=== PATIENT | female | born 1980 | race African-American/Black ===

== ENCOUNTER 2016-09-09 17:34 | Emergency (ER) | payer SELFPAY ==
[2016-09-09] MEDS ORDERED: ONDANSETRON HCL INJ/PF 4 MG/2 ML SDV IV ONE (18:47)
--- NOTE | 2016-09-09 18:49 | ER Document Report ---
ED Medical Screen (RME) - General Chief Complaint: Abdominal Cramping Stated Complaint: ABDOMINAL PAIN,VAGINAL BLEEDING Time Seen by Provider: 09/09/16 18:47 Mode of Arrival: Ambulatory Information source: Patient Notes: Patient presents with lower pelvic pain that radiates to left lower quadrant that started yesterday. Patient states she started to have vaginal bleeding yesterday. Patient's last menstrual period was 2 weeks ago. Patient does take an oral contraceptive pill. Patient complains of some dizziness. Patient denies any fever. Patient does report nausea and vomiting 8 episodes today. Denies any urinary symptoms. hx: none TRAVEL OUTSIDE OF THE [place] IN LAST 30 DAYS: No - Related Data Allergies/Adverse Reactions: No Known Allergies Allergy (Verified 09/09/16 17:43) Past Medical History Renal/ Medical History: Denies: Hx Peritoneal Dialysis - Immunizations Immunizations up to date: Yes Hx Diphtheria, Pertussis, Tetanus Vaccination: Yes Physical Exam - Vital signs Vitals: Temp Pulse Resp BP Pulse Ox 98.0 F 55 L 16 124/84 98 09/09/16 17:43 09/09/16 17:43 09/09/16 17:43 09/09/16 17:43 09/09/16 17:43 - Abdominal Tenderness: Tender - Suprapubic, left lower quadrant Course - Vital Signs Vital signs: Temp Pulse Resp BP Pulse Ox 98.0 F 55 L 16 124/84 98 09/09/16 17:43 09/09/16 17:43 09/09/16 17:43 09/09/16 17:43 09/09/16 17:43
[2016-09-09 19:40] LABS: ABSOLUTE EOSINOPHILS # (AUTO) 0.1 10^3/uL (0.0-0.6); ABSOLUTE LYMPHOCYTES (AUTO) 1.3 10^3/uL (0.5-4.7); ABSOLUTE MONOCYTES (AUTO) 0.6 10^3/uL (0.1-1.4); ABSOLUTE NEUT (AUTO) 2.9 10^3/uL (1.7-8.2); BASOPHILS % (AUTO) 0.6 % (0-2); EOSINOPHILS % (AUTO) 2.7 % (0-6); HEMATOCRIT 38.4 % (36.0-47.0); HEMOGLOBIN 12.9 g/dL (12.0-15.5); HGB HCT DIFFERENCE 0.3; LYMPHOCYTES % (AUTO) 26.9 % (13-45); MEAN CORPUSCULAR HEMOGLOBIN 31.6 pg (27.0-33.4); MEAN CORPUSCULAR HGB CONC 33.7 g/dL (32.0-36.0); MEAN CORPUSCULAR VOLUME 94 fl (80-97); MONOCYTES % (AUTO) 11.1 % (3-13); RED CELL DISTRIBUTION WIDTH 13.7 % (11.5-14.0); SEGMENTED NEUTROPHILS % (AUTO) 58.7 % (42-78)
[2016-09-09] MEDS ORDERED: KETOROLAC TROMETHAMINE INJ/PF 30 MG/1 ML SDV IV ONE (19:53)
[2016-09-09] MEDS ORDERED: MORPHINE SULFATE 10 MG/ML INJ IV ONE (19:53)
[2016-09-09 19:54] LABS: ALANINE AMINOTRANSFERASE 30 U/L (9-52); ALBUMIN 4.5 g/dL (3.5-5.0); ALKALINE PHOSPHATASE 43 U/L (38-126); ANION GAP 11 (5-19); ASPARTATE AMINO TRANSFERASE 24 U/L (14-36); BILIRUBIN,DIRECT 0.2 mg/dL (0.0-0.4); BILIRUBIN,TOTAL 1.2 mg/dL (0.2-1.3); BLOOD UREA NITROGEN 17 mg/dL (7-20); CALCIUM 9.6 mg/dL (8.4-10.2); CARBON DIOXIDE 24 mmol/L (22-30); CHLORIDE 106 mmol/L (98-107); CREATININE RESULT 0.94 mg/dL (0.52-1.25); GLUCOSE 103 mg/dL (75-110); POTASSIUM 4.1 mmol/L (3.6-5.0); SODIUM 140.8 mmol/L (137-145); TOTAL PROTEIN 7.4 g/dL (6.3-8.2)
--- NOTE | 2016-09-09 19:54 | ER Document Report ---
ED GI/ - General Chief Complaint: Abdominal Cramping Stated Complaint: ABDOMINAL PAIN,VAGINAL BLEEDING Time Seen by Provider: 09/09/16 18:47 Mode of Arrival: Ambulatory Notes: Patient is a 35-year-old female who comes emergency department for chief complaint of pain in her left lower abdomen/pelvic area along with vaginal bleeding. Bleeding started yesterday but pain became significantly worse today , she states after the pain began she vomited, she states she has vomited 8 times now. She denies abnormal bowel movements, hematemesis or hematochezia. She denies fever, flank pain, dysuria, vaginal discharge. Her last menstrual cycle was only 2 weeks ago. She denies history of the same, denies history of cysts or kidney stones. She denies any surgeries or past medical history. She takes daily oral contraceptive. TRAVEL OUTSIDE OF THE [place] IN LAST 30 DAYS: No - Related Data Allergies/Adverse Reactions: No Known Allergies Allergy (Verified 09/09/16 17:43) Past Medical History - General Information source: Patient - Social History Smoking Status: Current Every Day Smoker Chew tobacco use (# tins/day): No Frequency of alcohol use: None Drug Abuse: None Family History: None Renal/ Medical History: Denies: Hx Peritoneal Dialysis - Immunizations Immunizations up to date: Yes Hx Diphtheria, Pertussis, Tetanus Vaccination: Yes Review of Systems - Review of Systems Constitutional: No symptoms reported EENT: No symptoms reported Cardiovascular: No symptoms reported Respiratory: No symptoms reported Gastrointestinal: See HPI Genitourinary: See HPI Female Genitourinary: See HPI Musculoskeletal: No symptoms reported Skin: No symptoms reported Hematologic/Lymphatic: No symptoms reported Neurological/Psychological: No symptoms reported Physical Exam - Vital signs Vitals: Temp Pulse Resp BP Pulse Ox 98.0 F 55 L 16 124/84 98 09/09/16 17:43 09/09/16 17:43 09/09/16 17:43 09/09/16 17:43 09/09/16 17:43 Interpretation: Normal - General General appearance: Appears well, Alert - HEENT Head: Normocephalic, Atraumatic Eyes: Normal Pupils: PERRL - Respiratory Respiratory status: No respiratory distress Chest status: Nontender Breath sounds: Normal Chest palpation: Normal - Cardiovascular Rhythm: Regular Heart sounds: Normal auscultation Murmur: No - Abdominal Inspection: Normal Distension: No distension Bowel sounds: Normal Tenderness: Tender - Tenderness in the left lower quadrant to the left pelvic area, nontender abdomen otherwise. No guarding or rigidity. Organomegaly: No organomegaly - Back Back: Normal, Nontender. No: Tender, CVA tenderness - Extremities General upper extremity: Normal inspection, Nontender, Normal color, Normal ROM , Normal temperature General lower extremity: Normal inspection, Nontender, Normal color, Normal ROM , Normal temperature, Normal weight bearing. No: Olga Lidia's sign - Neurological Neuro grossly intact: Yes Cognition: Normal Orientation: AAOx4 Janay Coma Scale Eye Opening: Spontaneous [place] Coma Scale Verbal: Oriented [place] Coma Scale Motor: Obeys Commands [place] Coma Scale Total: 15 Speech: Normal Motor strength normal: LUE, RUE, LLE, RLE Sensory: Normal - Psychological Associated symptoms: Normal affect, Normal mood - Skin Skin Temperature: Warm Skin Moisture: Dry Skin Color: Normal Course - Re-evaluation Re-evalutation: Patient initially is in pain, she does have tenderness in the left lower quadrant and pelvic area. CBC, chemistry, urinalysis nonspecific. Patient refuses a pelvic examination. I did explain that this could be a pelvic infection and I cannot rule this out without one, she states that she does not have any symptoms of this and she does not want one. Ultrasound was performed and shows a cyst on both right and left ovaries with no evidence of torsion or other obvious abnormality. I did discuss the ultrasound with Dr. Adler. Patient asymptomatic on re-evaluation. Well appearing. Discussed workup with patient in detail, patient will be provided with medication for her symptoms, discussed ovarian cysts and return precautions, patient states satisfaction and agreement. - Vital Signs Vital signs: Temp Pulse Resp BP Pulse Ox 98.1 F 62 17 138/82 H 100 09/09/16 22:20 09/09/16 22:20 09/09/16 22:20 09/09/16 22:20 09/09/16 22:20 - Laboratory Result Diagrams: 09/09/16 19:20 09/09/16 19:20 Laboratory results interpreted by me: 09/09/16 20:20 Urine Protein 30 H Urine Ketones 80 H Urine Urobilinogen 2.0 H Discharge - Discharge Clinical Impression: Pelvic pain Vomiting Qualifiers: Vomiting type: unspecified Vomiting Intractability: non-intractable Nausea presence: with nausea Qualified Code(s): R11.2 - Nausea with vomiting, unspecified Condition: Stable Disposition: HOME, SELF-CARE Additional Instructions: Ultrasound shows ovarian cysts, this is most likely the cause of your pain, test is negative, remaining workup is unremarkable other than showing dehydration. Rehydrate, take the pain medication and nausea medication if needed, take ibuprofen additionally, follow-up with the [facility] [employer] referral. Return to emergency department for any worsening symptoms including return or severe pain, fever, uncontrolled vomiting, or any other concerning symptoms. Ovarian Cyst Your examination shows the presence of an ovarian cyst. This is a ball of fluid attached to the ovary. Ovarian cysts in women of child-bearing age are usually innocent. However, the cyst may cause pain when it grows or bursts. An innocent ovarian cyst will usually go away by itself. When the cyst becomes painful, you should rest. Pain medication may be required. Some women find a hot water bottle soothing. The pain usually resolves within one or two days. After menopause, an ovarian cyst may mean a tumor, and requires more aggressive evaluation -- usually surgery is recommended to remove or biopsy the cyst. A very large cyst requires evaluation at any age. Most cysts (even the innocent ones) require follow-up examination. Call the doctor or return at any time if the pain increases significantly, if you become faint, or if you experience vaginal bleeding. Prescriptions: Hydrocodone/Acetaminophen [Stopover 5-325 mg Tablet] 1 - 2 tab PO ASDIR #12 tablet Promethazine HCl [Phenergan 25 mg Tablet] 1 - 2 tab PO Q6H PRN #15 tablet PRN Reason: Forms: Return to Work
[2016-09-09 20:36] LABS: APPEARANCE,URINE CLOUDY; BILIRUBIN,URINE NEGATIVE (NEGATIVE); GLUCOSE, URINE NEGATIVE (NEGATIVE); KETONES,URINE 80 mg/dL (NEGATIVE); LEUKOCYTE ESTERASE,URINE NEGATIVE (NEGATIVE); NITRITE,URINE NEGATIVE (NEGATIVE); PROTEIN,URINE 30 mg/dL (NEGATIVE); URINE SPECIFIC GRAVITY 1.035
[2016-09-09] MEDS ORDERED: NORMAL SALINE 1000 ML 1,000 ML IV ONE (21:08)
--- NOTE | 2016-09-09 21:51 | RADIOLOGY REPORT (SQ) ---
EXAM DESCRIPTION: U/S NON OB PEL TV W/DOPPLER COMPLETED DATE/TIME: 09/09/2016 9:38 pm REASON FOR STUDY: LLQ pain COMPARISON: None. TECHNIQUE: Dynamic and static grayscale images acquired of the pelvis via transvaginal approach and recorded on PACS. Additional selected color Doppler and spectral images recorded. LIMITATIONS: None. FINDINGS: UTERUS: Contour normal. No mass. ENDOMETRIAL STRIPE: No focal or generalized thickening. No masses. CERVIX: No nabothian cysts. RIGHT OVARY: There is simple cyst in the right ovary measuring 4.1 x 3.1 x 3.1 cm. Small amount of f ree fluid seen adjacent to the right adnexum. RIGHT OVARY DOPPLER: Normal arterial vascular flow without evidence for torsion. LEFT OVARY: Paraovarian hypoechoic lesion/cyst measuring 1.8 by 1.2 x 1.1 cm. The ovary is of unremar kable appearance. LEFT OVARY DOPPLER: Normal arterial vascular flow without evidence for torsion. FREE FLUID: None noted. OTHER: No other significant finding. MEASUREMENTS: UTERUS: 10.1 x 5.5 x 5.1 cm ENDOMETRIAL STRIPE: 6 mm RIGHT OVARY: 4.9 x 3.8 x 3.6 cm LEFT OVARY: 3.5 x 2.8 x 2.0 cm IMPRESSION: 1. 4.1 cm Right ovarian cyst, simple. Small amount of free fluid seen adjacent to the ovary. No evidence of torsion. 2. Paraovarian cyst measuring 1.8 x 1.2 x 1.1 cm on the left. Left ovary is normal in appearance. No evidence of torsion. 3. Otherwise unremarkable pelvic ultrasound could COMMENT: Followup of asymptomatic benign ovarian cysts detected by ultrasound in POSTMENOPAUSAL pat ients Simple cyst *? 1 cm: no followup *>1 and ? 7 cm: yearly followup ultrasound *>7 cm: MRI or surgical consultation Hemorrhagic cyst *Early postmenopausal (50-55 yo) any size: followup US to ensure resolution *Late postmenopausal (>55 yo): consider surgical evaluation Endometrioma *Initial US 6-12 week followup, then yearly if not surgically removed Dermoid *Yearly followup US if not surgically removed Note: If cyst is clinically symptomatic or otherwise concerning, other followup may be warranted. Menopause is considered age 50 by radiologist unless age of last period is known. Based on recommenda tions of the Society for Radiologists in Ultrasound Consensus Conference Statement 2010 on management of asymptomatic ovarian and other adnexal cysts imaged at ultrasound. TECHNICAL DOCUMENTATION: JOB ID: [id number] [employer]- All Rights Reserved
[2016-09-09] MEDS ORDERED: HYDROCODONE/ACETAMINOPHEN 5-325 MG 6 TAB/DSPK PO PRN (22:05)
[2016-09-09 22:27] VITALS: BP 138/82
== END 2016-09-09 22:20 | disposition home or self-care (01) ==
LOC: ER 17:34
DX: R10.2 Pelvic and perineal pain (principal); R11.2 Nausea with vomiting, unspecified; N93.9 Abnormal uterine and vaginal bleeding, unspecified; R10.32 Left lower quadrant pain; F17.200 Nicotine dependence, unspecified, uncomplicated
CPT/HCPCS: 99284; 96361; 51701; 96374; 96375; 36415; 84703; 85025; 80053; 81001; 76830; 93976; J1885; J2270; J2405; J7030

== ENCOUNTER 2018-01-08 17:53 | Emergency (ER) | payer SELFPAY ==
[2018-01-08] MEDS ORDERED: NORMAL SALINE 1000 ML 1,000 ML IV ONE ×2 (18:48→19:52)
[2018-01-08] MEDS ORDERED: KETOROLAC TROMETHAMINE INJ/PF 30 MG/1 ML SDV IV ONE (18:49)
[2018-01-08] MEDS ORDERED: ONDANSETRON HCL INJ/PF 4 MG/2 ML SDV IV ONE ×2 (18:49→21:08)
--- NOTE | 2018-01-08 18:51 | ER Document Report ---
ED Medical Screen (RME) - General Chief Complaint: Pelvic Pain Stated Complaint: PELVIC PAIN Time Seen by Provider: 01/08/18 18:45 Notes: Patient is a 37-year-old female with history of ovarian cysts that presents to the emergency department for chief complaint of pelvic cramping. Patient reports that her pain started yesterday, when she started her menstrual period became much worse today to the point where she could not tolerate so she came to the ED. Patient reports she does not believe she is as she is currently on her menstrual cycle, and has not had sexual intercourse in over 8 months. ROS: Other than noted above, the 12 point review of systems was reviewed with the patient and were negative, all pertinent findings are included in the HPI. PHYSICAL EXAMINATION: Vital signs reviewed. GENERAL: Patient appears uncomfortable, dry heaving HEAD: Atraumatic, normocephalic. EYES: Pupils equal round extraocular movements intact, conjunctiva are normal. ENT: Nares patent NECK: Normal range of motion CV: Heart regular rate and rhythm LUNGS: No respiratory distress Musculoskeletal: Normal range of motion NEUROLOGICAL: Normal speech PSYCH: Appears uncomfortable, answers questions appropriately MDM: Patient seen and examined for rapid initial assessment. Vital signs reviewed. A comprehensive ED assessment and evaluation of the patient, analysis of test results and completion of the medical decision making process will be conducted by additional ED providers. *Note is created using voice recognition software and may contain spelling, syntax or grammatical errors. TRAVEL OUTSIDE OF THE [place] IN LAST 30 DAYS: No - Related Data Allergies/Adverse Reactions: No Known Allergies Allergy (Verified 10/16/17 17:12) Past Medical History Renal/ Medical History: Denies: Hx Peritoneal Dialysis Past Surgical History: Reports: Hx Oral Surgery - wisodm teeth, Hx Orthopedic Surgery - knee surgery - Immunizations Immunizations up to date: Yes Hx Diphtheria, Pertussis, Tetanus Vaccination: Yes Physical Exam - Vital signs Vitals: Temp Pulse BP Pulse Ox 97.6 F 65 142/68 H 98 01/08/18 18:42 01/08/18 18:42 01/08/18 18:42 01/08/18 18:42 Course - Vital Signs Vital signs: Temp Pulse Resp BP Pulse Ox 97.6 F 65 142/68 H 98 01/08/18 18:42 01/08/18 18:42 01/08/18 18:42 01/08/18 18:42
[2018-01-08 19:46] LABS: APPEARANCE,URINE SLIGHTLY-CLOUDY; BILIRUBIN,URINE NEGATIVE (NEGATIVE); COLOR,URINE YELLOW; GLUCOSE, URINE NEGATIVE (NEGATIVE); KETONES,URINE 80 mg/dL (NEGATIVE); LEUKOCYTE ESTERASE,URINE SMALL (NEGATIVE); NITRITE,URINE NEGATIVE (NEGATIVE); PROTEIN,URINE >=500 mg/dL (NEGATIVE); URINE SPECIFIC GRAVITY 1.031
--- NOTE | 2018-01-08 19:55 | ER Document Report ---
ED GI/ - General Chief Complaint: Pelvic Pain Stated Complaint: PELVIC PAIN Time Seen by Provider: 01/08/18 18:45 Mode of Arrival: Ambulatory Information source: Patient Notes: Patient presents complaining of pelvic cramping that started yesterday with onset of her menses. Patient states the pain is been constant. Patient reports nausea and vomiting due to the pain symptoms. Patient states she has had problems with dysmenorrhea but only occasionally will have to come get treatment for it because it causes her to have persistent nausea and vomiting due to the pain symptoms. Patient states that she had taken herself off of control in hopes of helping to improve her pain symptoms. Patient denies any concern about STDs at this time. Patient denies any fever. TRAVEL OUTSIDE OF THE [place] IN LAST 30 DAYS: No - HPI Patient complains to provider of: Pelvic pain, Vaginal bleeding Onset: Yesterday Timing/Duration: Persistent Quality of pain: Cramping Pain Level: 5 Location: Pelvis Vaginal bleeding (Compared to normal period): Similar Sexual history: Active Associated symptoms: Nausea, Vomiting. denies: Blood in emesis, Dizzy, Fever, Urinary hesitancy, Urinary frequency, Urinary retention, Vaginal discharge Exacerbated by: Denies Relieved by: Denies Similar symptoms previously: Yes Recently seen / treated by doctor: No - Related Data Allergies/Adverse Reactions: No Known Allergies Allergy (Verified 10/16/17 17:12) Past Medical History - General Information source: Patient - Social History Smoking Status: Former Smoker Frequency of alcohol use: Occasional Drug Abuse: None Occupation: marketing services manager Family History: Reviewed & Not Pertinent Patient has suicidal ideation: No Patient has homicidal ideation: No Renal/ Medical History: Reports: Hx Ovarian Cysts. Denies: Hx Peritoneal Dialysis Past Surgical History: Reports: Hx Oral Surgery - wisodm teeth, Hx Orthopedic Surgery - knee surgery - Immunizations Immunizations up to date: Yes Hx Diphtheria, Pertussis, Tetanus Vaccination: Yes Review of Systems - Review of Systems Constitutional: No symptoms reported. denies: Fever EENT: No symptoms reported Cardiovascular: No symptoms reported. denies: Chest pain Respiratory: No symptoms reported. denies: Cough, Short of breath Gastrointestinal: Abdominal pain, Nausea, Vomiting. denies: Constipation, Poor appetite Genitourinary: No symptoms reported. denies: Dysuria, Flank pain Female Genitourinary: Vaginal bleeding. denies: Vaginal discharge Musculoskeletal: No symptoms reported. denies: Back pain Skin: No symptoms reported Hematologic/Lymphatic: No symptoms reported Neurological/Psychological: No symptoms reported Physical Exam - Vital signs Vitals: Temp Pulse BP Pulse Ox 97.6 F 65 142/68 H 98 01/08/18 18:42 01/08/18 18:42 01/08/18 18:42 01/08/18 18:42 - General General appearance: Appears well, Alert In distress: None - HEENT Head: Normocephalic, Atraumatic Eyes: Normal Nasal: Normal Mouth/Lips: Normal Mucous membranes: Dry Neck: Normal, Supple. No: Lymphadenopathy - Respiratory Respiratory status: No respiratory distress Chest status: Nontender Breath sounds: Normal. No: Rales, Rhonchi, Stridor, Wheezing Chest palpation: Normal - Cardiovascular Rhythm: Regular Heart sounds: S1 appreciated, S2 appreciated Murmur: No - Abdominal Inspection: Normal Distension: No distension Bowel sounds: Normal Tenderness: Tender - lower pelvic - Extremities General upper extremity: Normal inspection, Normal ROM General lower extremity: Normal inspection, Normal ROM - Neurological Neuro grossly intact: Yes Cognition: Normal Janay Coma Scale Eye Opening: Spontaneous [place] Coma Scale Verbal: Oriented [place] Coma Scale Motor: Obeys Commands [place] Coma Scale Total: 15 - Psychological Associated symptoms: Normal affect, Normal mood - Skin Skin Temperature: Warm Skin Moisture: Dry Skin Color: Normal Course - Re-evaluation Re-evalutation: 01/08/18 21:11 Patient complains of continued pelvic pain with nausea and vomiting. Review of patient's previous ER visits demonstrates that patient has come in previously with pelvic pain associated with her menstrual cycle with nausea and vomiting. Patient does state that this is pain typical of when she has had problems with her menstrual cycle and her ovarian cyst. 01/08/18 22:39 Patient reports that pain is resolved as well as nausea. Patient states that this typically happens that whenever her pain gets out of control it triggers the vomiting which she can get resolved until the pain is manageable. Patient' s abdomen soft, no guarding at this time. Ultrasound reviewed, no concern for torsion or TOA. Patient feels that she can manage her symptoms at home at this time. - Vital Signs Vital signs: Temp Pulse Resp BP Pulse Ox 98.0 F 57 L 16 104/67 100 01/08/18 22:54 01/08/18 22:54 01/08/18 22:54 01/08/18 22:54 01/08/18 22:54 - Laboratory Result Diagrams: 01/08/18 20:56 01/08/18 20:56 Laboratory results interpreted by me: 01/08/18 01/08/18 01/08/18 19:20 20:49 20:56 Seg Neutrophils % 84.4 H Lymphocytes % 10.3 L Chloride Carbon Dioxide Glucose Urine Protein >=500 H 30 H Urine Ketones 80 H 20 H Urine Blood LARGE H Urine Urobilinogen 2.0 H Ur Leukocyte Esterase SMALL H 01/08/18 20:56 Seg Neutrophils % Lymphocytes % Chloride 110 H Carbon Dioxide 21 L Glucose 126 H Urine Protein Urine Ketones Urine Blood Urine Urobilinogen Ur Leukocyte Esterase 01/08/18 22:39 Labs- Entire Visit 01/08/18 01/08/18 01/08/18 19:20 20:49 20:56 WBC 5.8 RBC 4.05 Hgb 12.7 Hct 37.2 MCV 92 MCH 31.5 MCHC 34.2 RDW 13.9 Plt Count 200 Seg Neutrophils % 84.4 H Lymphocytes % 10.3 L Monocytes % 4.8 Eosinophils % 0.1 Basophils % 0.4 Absolute Neutrophils 4.9 Absolute Lymphocytes 0.6 Absolute Monocytes 0.3 Absolute Eosinophils 0.0 Absolute Basophils 0.0 Sodium Potassium Chloride Carbon Dioxide Anion Gap BUN Creatinine Est GFR ( Amer) Est GFR (Non-Af Amer) Glucose Calcium Total Bilirubin Direct Bilirubin Neonat Total Bilirubin Neonat Direct Bilirubin Neonat Indirect Bili AST ALT Alkaline Phosphatase Total Protein Albumin Lipase Urine Color YELLOW STRAW Urine Appearance SLIGHTLY-CLOUDY CLEAR Urine pH 6.0 7.0 Ur Specific [place] 1.031 1.014 Urine Protein >=500 H 30 H Urine Glucose (UA) NEGATIVE NEGATIVE Urine Ketones 80 H 20 H Urine Blood LARGE H NEGATIVE Urine Nitrite NEGATIVE NEGATIVE Urine Bilirubin NEGATIVE NEGATIVE Urine Urobilinogen 2.0 H NEGATIVE Ur Leukocyte Esterase SMALL H NEGATIVE Urine WBC (Auto) 21 1 Urine RBC (Auto) >182 2 Squamous Epi Cells Auto 4 <1 Urine Mucus (Auto) MANY RARE Urine Ascorbic Acid NEGATIVE NEGATIVE Urine HCG, Qual NEGATIVE 01/08/18 20:56 WBC RBC Hgb Hct MCV MCH MCHC RDW Plt Count Seg Neutrophils % Lymphocytes % Monocytes % Eosinophils % Basophils % Absolute Neutrophils Absolute Lymphocytes Absolute Monocytes Absolute Eosinophils Absolute Basophils Sodium 142.9 Potassium 3.8 Chloride 110 H Carbon Dioxide 21 L Anion Gap 12 BUN 13 Creatinine 0.77 Est GFR ( Amer) > 60 Est GFR (Non-Af Amer) > 60 Glucose 126 H Calcium 9.0 Total Bilirubin 1.0 Direct Bilirubin 0.1 Neonat Total Bilirubin Not Reportable Neonat Direct Bilirubin Not Reportable Neonat Indirect Bili Not Reportable AST 27 ALT 29 Alkaline Phosphatase 44 Total Protein 6.9 Albumin 4.1 Lipase 35.1 Urine Color Urine Appearance Urine pH Ur Specific [place] Urine Protein Urine Glucose (UA) Urine Ketones Urine Blood Urine Nitrite Urine Bilirubin Urine Urobilinogen Ur Leukocyte Esterase Urine WBC (Auto) Urine RBC (Auto) Squamous Epi Cells Auto Urine Mucus (Auto) Urine Ascorbic Acid Urine HCG, Qual - Diagnostic Test Radiology reviewed: Reports reviewed Discharge - Discharge Clinical Impression: Dysmenorrhea Ovarian cyst Qualifiers: Laterality: unspecified laterality Qualified Code(s): N83.209 - Unspecified ovarian cyst, unspecified side Nausea and vomiting Qualifiers: Vomiting type: unspecified Vomiting Intractability: non-intractable Qualified Code(s): R11.2 - Nausea with vomiting, unspecified Condition: Stable Disposition: HOME, SELF-CARE Instructions: Anti-Inflammatory Medication ([facility]), Intravenous (IV) Fluids ([facility]) , [facility]-[employer] Doctors, Pelvic Pain ([facility]), Vomiting ([facility]) Additional Instructions: Return immediately for any new or worsening symptoms Followup with your primary care provider, call tomorrow to make a followup appointment Follow-up with a personal secretary for further evaluation, call tomorrow for an appointment Prescriptions: Naproxen [Naprosyn 250 Nmg Tablet] 1 tab PO BID #14 tablet Ondansetron HCl [Zofran 4 mg Tablet] 1 - 2 tab PO Q6 PRN #15 tablet PRN Reason: Forms: Return to Work Referrals: [facility] [Provider Group] - Follow up in 3-5 days
--- NOTE | 2018-01-08 20:44 | RADIOLOGY REPORT (SQ) ---
EXAM DESCRIPTION: U/S NON OB PEL TV W/DOPPLER COMPLETED DATE/TIME: 01/08/2018 8:33 pm REASON FOR STUDY: pelvic pain, hx ovarian cysts COMPARISON: 10/16/2017 and earlier TECHNIQUE: Dynamic and static grayscale images acquired of the pelvis via transvaginal approach and recorded on PACS. Additional selected color Doppler and spectral images recorded. LIMITATIONS: None. FINDINGS: UTERUS: Contour normal. No mass. ENDOMETRIAL STRIPE: No focal or generalized thickening. No masses. CERVIX: Few nabothian cysts. RIGHT OVARY AND DOPPLER: Normal size. No worrisome masses. Normal arterial vascular flow without evid ence for torsion. LEFT OVARY AND DOPPLER: Normal size. Unchanged paraovarian cyst measuring 2.2 cm. No worrisome mass es. Normal arterial vascular flow without evidence for torsion. FREE FLUID: None noted. OTHER: No other significant finding. MEASUREMENTS: UTERUS: 10.0 x 5.0 x 4.7 cm ENDOMETRIAL STRIPE: 4 mm RIGHT OVARY: 3.1 x 1.8 x 1.9 cm LEFT OVARY: 3.0 x 1.8 x 1.6 cm IMPRESSION: 1. No evidence of ovarian torsion. 2. Unchanged left paraovarian cyst. TECHNICAL DOCUMENTATION: JOB ID: [id number] [employer]- All Rights Reserved Rev-06/24 Reading location - IP/workstation name: [email or web address]
[2018-01-08 21:07] LABS: ABSOLUTE LYMPHOCYTES (AUTO) 0.6 10^3/uL (0.5-4.7); ABSOLUTE MONOCYTES (AUTO) 0.3 10^3/uL (0.1-1.4); ABSOLUTE NEUT (AUTO) 4.9 10^3/uL (1.7-8.2); BASOPHILS % (AUTO) 0.4 % (0-2); EOSINOPHILS % (AUTO) 0.1 % (0-6); HEMATOCRIT 37.2 % (36.0-47.0); HEMOGLOBIN 12.7 g/dL (12.0-15.5); LYMPHOCYTES % (AUTO) 10.3 % (13-45); MEAN CORPUSCULAR HEMOGLOBIN 31.5 pg (27.0-33.4); MEAN CORPUSCULAR HGB CONC 34.2 g/dL (32.0-36.0); MEAN CORPUSCULAR VOLUME 92 fl (80-97); MONOCYTES % (AUTO) 4.8 % (3-13); PLATELET COUNT 200 10^3/uL (150-450); RED BLOOD COUNT 4.05 10^6/uL (3.72-5.28); RED CELL DISTRIBUTION WIDTH 13.9 % (11.5-14.0); SEGMENTED NEUTROPHILS % (AUTO) 84.4 % (42-78); TOTAL CELLS COUNTED % (AUTO) 100 %; WHITE BLOOD COUNT 5.8 10^3/uL (4.0-10.5)
[2018-01-08] MEDS ORDERED: HYDROMORPHONE HCL INJ/PF 2 MG/ML AMPULE IV ONE (21:08)
[2018-01-08 21:11] LABS: APPEARANCE,URINE CLEAR; BILIRUBIN,URINE NEGATIVE (NEGATIVE); COLOR,URINE STRAW; GLUCOSE, URINE NEGATIVE (NEGATIVE); KETONES,URINE 20 mg/dL (NEGATIVE); LEUKOCYTE ESTERASE,URINE NEGATIVE (NEGATIVE); NITRITE,URINE NEGATIVE (NEGATIVE); PROTEIN,URINE 30 mg/dL (NEGATIVE); URINE SPECIFIC GRAVITY 1.014; UROBILINOGEN,URINE NEGATIVE mg/dL (<2.0)
[2018-01-08 21:19] LABS: BLOOD UREA NITROGEN 13 mg/dL (7-20); GLUCOSE 126 mg/dL (75-110)
[2018-01-08 21:20] LABS: ALANINE AMINOTRANSFERASE 29 U/L (9-52); ALBUMIN 4.1 g/dL (3.5-5.0); ALKALINE PHOSPHATASE 44 U/L (38-126); ANION GAP 12 (5-19); ASPARTATE AMINO TRANSFERASE 27 U/L (14-36); BILIRUBIN,DIRECT 0.1 mg/dL (0.0-0.4); CARBON DIOXIDE 21 mmol/L (22-30); CHLORIDE 110 mmol/L (98-107); LIPASE 35.1 U/L (23-300); POTASSIUM 3.8 mmol/L (3.6-5.0); SODIUM 142.9 mmol/L (137-145); TOTAL PROTEIN 6.9 g/dL (6.3-8.2)
[2018-01-08 22:56] VITALS: BP 104/67
== END 2018-01-08 22:56 | disposition home or self-care (01) ==
LOC: ER 17:53
DX: N94.6 Dysmenorrhea, unspecified (principal); N83.202 Unspecified ovarian cyst, left side; R10.2 Pelvic and perineal pain; R11.2 Nausea with vomiting, unspecified; R10.9 Unspecified abdominal pain; Z87.891 Personal history of nicotine dependence
CPT/HCPCS: 96376; 99284; 96361; 96374; 96375; 36415; 83690; 85025; 81025; 80053; 81001; 76830; 93976; J1885; J1170; J2405; J7030

== ENCOUNTER → 2018-01-14 | Outpatient (CLI) | payer SELFPAY ==
[2018-01-14 13:42] LABS: BACTERIA (WET MOUNT) 3+ BACTERIA SEEN; EPITHELIALS (WET MOUNT) 3+ EPITHELIALS SEEN; RBCS (WET MOUNT) FEW RBCS SEEN; T.VAGINALIS (WET MOUNT) TRICHOMONAS SEEN; WBCS (WET MOUNT) FEW WBCS SEEN; YEAST (WET MOUNT) NO YEAST SEEN
== END ==
LOC: LAB 13:30
PROVIDERS: ATTEND Nurse Practitioner Family
DX: N89.8 Other specified noninflammatory disorders of vagina (principal)
CPT/HCPCS: 87210

== ENCOUNTER 2018-02-07 21:21 | Emergency (ER) | payer SELFPAY ==
[2018-02-07] MEDS ORDERED: KETOROLAC TROMETHAMINE INJ/PF 30 MG/1 ML SDV IV ONE (22:14)
[2018-02-07] MEDS ORDERED: PROMETHAZINE HCL INJ 25 MG/1 ML VIAL IM ONE (22:15)
[2018-02-07] MEDS ORDERED: NORMAL SALINE 1000 ML 1,000 ML IV ONE (22:16)
--- NOTE | 2018-02-07 22:56 | ER Document Report ---
ED General - General Chief Complaint: Syncope Stated Complaint: NAUSEA,VOMITING,VERY WEAK Time Seen by Provider: 02/07/18 21:57 Notes: Patient is a 37-year-old female with a history of severe menstrual cramping. She says when she gets these cramps she starts to vomit she feels unwell and sometimes passes out. Today she passed out in the emergency room lobby. She says that this is been a chronic problem for a long time but seems to be a l ittle bit worse in the last couple months. She was on control. She states she recent moved to the area. She says she took herself off both control in July because her symptoms were even worse when she was on control. She denies any fevers. No blood in her emesis. No diarrhea. No other complaints at this time. TRAVEL OUTSIDE OF THE [place] IN LAST 30 DAYS: No - Related Data Allergies/Adverse Reactions: No Known Allergies Allergy (Verified 10/16/17 17:12) Past Medical History - Social History Smoking Status: Former Smoker Chew tobacco use (# tins/day): No Frequency of alcohol use: None Drug Abuse: None Family History: Reviewed & Not Pertinent Patient has suicidal ideation: No Patient has homicidal ideation: No Renal/ Medical History: Reports: Hx Ovarian Cysts. Denies: Hx Peritoneal Dialysis Past Surgical History: Reports: Hx Oral Surgery - wisodm teeth, Hx Orthopedic Surgery - knee surgery - Immunizations Immunizations up to date: Yes Hx Diphtheria, Pertussis, Tetanus Vaccination: Yes Review of Systems - Review of Systems Notes: My Normal Review Basic REVIEW OF SYSTEMS: CONSTITUTIONAL : Denies fever, chills, or sweats. Denies recent illness. CARDIOVASCULAR: Denies chest pain. RESPIRATORY: Denies cough, cold, or chest congestion. Denies shortness of breath, difficulty breathing, or wheezing. GASTROINTESTINAL: Normal cramping GENITOURINARY: Denies difficulty urinating, painful urination, burning, frequency, or blood in urine. FEMALE GENITOURINARY: Vaginal bleeding SKIN: Denies rash or skin lesions. NEUROLOGICAL: Syncopal episode. Denies headache. Denies weakness or paralysis or loss of use of either side. Denies problems with gait or speech. Denies sensory or motor loss. ALL OTHER SYSTEMS REVIEWED AND NEGATIVE. Physical Exam - Vital signs Vitals: Temp Pulse Resp BP Pulse Ox 97.7 F 50 L 18 140/86 H 97 02/07/18 21:38 02/07/18 21:38 02/07/18 21:38 02/07/18 21:38 02/07/18 21:38 - Notes Notes: General Appearance: Well nourished, alert, cooperative, no acute distress, mild obvious discomfort. Well-appearing. Vitals: reviewed, See vital signs table. Eyes: PERRL, EOMI, Conjuctiva clear Mouth: No decreasd moisture Lungs: No wheezing, No rales, No rhonci, No accessory muscle use, good air exchange bilaterally. Heart: Normal rate, Regular rythm, No murmur, no rub Abdomen: Normal BS, soft, No rigidity, No reproducible abdominal tenderness to palpation, No guarding, no rebound, no abdominal masses, no organomegaly Extremities: good pulses in all extremities, no edema. Skin: warm, dry, appropriate color, no rash Neuro: speech clear, oriented x 3, normal affect, responds appropriately to questions. Cranial nerves II through XII are intact. Distal sensation intact. Patient moves all extremities without difficulty. Course - Re-evaluation Re-evalutation: 02/07/18 23:54 Patient has not had any further vomiting however she says she still has a lot of pain still feels somewhat nauseous. We will give her a small dose of morphine to see if this helps her pain. She does have large ketones in the urine and therefore I want her to finish her IV saline bolus. Patient agrees with plan. 02/08/18 01:45 Patient has now received 2 L of fluids. She has not had any vomiting since being brought back to the main ED. She is received pain medicine her pain is much improved and she has been sleeping comfortably in the room. I reevaluated her and she looks well. I talked at length about the importance of following up with auditor/quality. I informed her that she really needs to do this in order to look further into why she is having this pain with her menstrual periods. I informed her that endometriosis is a big possibility and this cannot be diagnosed by auditor/quality. Informed her there is specific treatments for this. She has had previous ultrasounds performed here. There is no evidence of fibroids on these ultrasounds. I do not see the need for repeat ultrasound. She has no abnormal discharge or fevers. No signs or concerns for sexually transmitted diseases. Seems to be recurrent chronic problems with her menstrual period. Strongly encouraged to return to ER if she has intractable vomiting or intractable pain. Patient agrees with plan will be discharged home. Dictation of this chart was performed using voice recognition software; the refore, there may be some unintended grammatical errors. - Vital Signs Vital signs: Temp Pulse Resp BP Pulse Ox 98.8 F 42 L 0 L 143/108 H 99 02/07/18 21:50 02/07/18 21:56 02/08/18 00:01 02/08/18 00:01 02/08/18 00:01 - Laboratory Result Diagrams: 02/07/18 22:45 02/07/18 22:45 Laboratory results interpreted by me: 02/07/18 02/07/18 02/07/18 22:40 22:45 22:45 Hct 35.6 L RDW 14.3 H Seg Neutrophils % 81.8 H Lymphocytes % 8.4 L Chloride 108 H Glucose 139 H Urine Protein 100 H Urine Ketones 80 H Urine Blood MODERATE H Urine Ascorbic Acid 20 H - EKG Interpretation by Me Additional EKG results interpreted by me: 02/08/18 00:04 EKG is reviewed and interpreted by me. EKG shows sinus rhythm with a rate of [address] segment elevation or depression. No ischemic T wave inversions. LA interval, QRS duration are within normal range. QTc interval is borderline. Discharge - Discharge Clinical Impression: Dysmenorrhea Syncope Qualifiers: Syncope type: unspecified Qualified Code(s): R55 - Syncope and collapse Additional Instructions: I highly recommend that you follow-up with a auditor/quality. Please call Dr. French's office this morning to make a close follow-up appointment. You could have underlying pathology such as endometriosis which could be causing your pain. This can only be diagnosed by a auditor/quality. It is also very important you follow-up with them as there is specific treatment for this that will hopefully make you feel better. I have written a prescription for some pain medicine and nausea medicine. Please return to the ER if you have intractable vomiting or feel that you are worsening. Do not take other NSAID medicaitons such as Aspirin, Motrin, Ibuprofen, Aleve, or Advil when taking this medication. It is okay to take Tylenol. Prescriptions: Ketorolac Tromethamine [Toradol 10 mg Tablet] 10 mg PO Q8HP PRN #15 tablet PRN Reason: abdominal pain Promethazine HCl [Phenergan 25 mg Tablet] 1 tab PO Q6H PRN #15 tablet PRN Reason: Forms: Return to Work Referrals: AYANA FRENCH MD [ACTIVE STAFF] - Follow up tomorrow
[2018-02-07 22:57] LABS: ABSOLUTE LYMPHOCYTES (AUTO) 0.5 10^3/uL (0.5-4.7); ABSOLUTE MONOCYTES (AUTO) 0.6 10^3/uL (0.1-1.4); ABSOLUTE NEUT (AUTO) 5.1 10^3/uL (1.7-8.2); BASOPHILS % (AUTO) 0.2 % (0-2); HEMATOCRIT 35.6 % (36.0-47.0); HEMOGLOBIN 12.1 g/dL (12.0-15.5); LYMPHOCYTES % (AUTO) 8.4 % (13-45); MEAN CORPUSCULAR HEMOGLOBIN 31.4 pg (27.0-33.4); MEAN CORPUSCULAR HGB CONC 33.9 g/dL (32.0-36.0); MEAN CORPUSCULAR VOLUME 92 fl (80-97); MONOCYTES % (AUTO) 9.6 % (3-13); PLATELET COUNT 223 10^3/uL (150-450); RED BLOOD COUNT 3.85 10^6/uL (3.72-5.28); RED CELL DISTRIBUTION WIDTH 14.3 % (11.5-14.0); SEGMENTED NEUTROPHILS % (AUTO) 81.8 % (42-78); TOTAL CELLS COUNTED % (AUTO) 100 %; WHITE BLOOD COUNT 6.2 10^3/uL (4.0-10.5)
[2018-02-07 23:07] LABS: APPEARANCE,URINE SLIGHTLY-CLOUDY; BILIRUBIN,URINE NEGATIVE (NEGATIVE); COLOR,URINE YELLOW; GLUCOSE, URINE NEGATIVE (NEGATIVE); KETONES,URINE 80 mg/dL (NEGATIVE); LEUKOCYTE ESTERASE,URINE NEGATIVE (NEGATIVE); NITRITE,URINE NEGATIVE (NEGATIVE); PROTEIN,URINE 100 mg/dL (NEGATIVE); URINE SPECIFIC GRAVITY 1.028; UROBILINOGEN,URINE NEGATIVE mg/dL (<2.0)
[2018-02-07 23:30] LABS: ANION GAP 8 (5-19); BLOOD UREA NITROGEN 18 mg/dL (7-20); CALCIUM 9.3 mg/dL (8.4-10.2); CARBON DIOXIDE 24 mmol/L (22-30); CHLORIDE 108 mmol/L (98-107); GLUCOSE 139 mg/dL (75-110); POTASSIUM 3.6 mmol/L (3.6-5.0); SODIUM 139.9 mmol/L (137-145)
[2018-02-07] MEDS ORDERED: MORPHINE SULFATE 10 MG/ML INJ IV ONE (23:50)
[2018-02-08 02:03] VITALS: BP 122/73
--- NOTE | 2018-02-08 17:19 | EKG REPORT ---
SEVERITY:- BORDERLINE ECG - SINUS ARRHYTHMIA, RATE 60-90 BORDERLINE PROLONGED QT INTERVAL : Confirmed by: Dayami David MD 08-Feb-2018 17:18:39
== END 2018-02-08 02:03 | disposition home or self-care (01) ==
LOC: ER 21:21
DX: N94.6 Dysmenorrhea, unspecified (principal); R55 Syncope and collapse; T38.4X6A Underdosing of oral contraceptives, initial encounter; Z91.128 Patient's intentional underdosing of medication regimen for other reason; Z91.14 Patient's other noncompliance with medication regimen; R11.2 Nausea with vomiting, unspecified; Z87.891 Personal history of nicotine dependence
CPT/HCPCS: 93005; 99284; 96372; 96361; 96374; 96375; 36415; 84703; 85025; 80048; 81001; 93010; J1885; J2270; J2550; J7030

== ENCOUNTER 2018-10-14 03:33 | Emergency (ER) | payer SELFPAY ==
[2018-10-14] MEDS ORDERED: ONDANSETRON HCL INJ/PF 4 MG/2 ML SDV IV ONE (04:50)
[2018-10-14 05:15] LABS: ABSOLUTE LYMPHOCYTES (AUTO) 0.7 10^3/uL (0.5-4.7); ABSOLUTE MONOCYTES (AUTO) 0.2 10^3/uL (0.1-1.4); ABSOLUTE NEUT (AUTO) 5.7 10^3/uL (1.7-8.2); BASOPHILS % (AUTO) 0.4 % (0-2); EOSINOPHILS % (AUTO) 0.1 % (0-6); HEMATOCRIT 39.3 % (36.0-47.0); HEMOGLOBIN 13.1 g/dL (12.0-15.5); LYMPHOCYTES % (AUTO) 10.8 % (13-45); MEAN CORPUSCULAR HEMOGLOBIN 30.9 pg (27.0-33.4); MEAN CORPUSCULAR HGB CONC 33.2 g/dL (32.0-36.0); MEAN CORPUSCULAR VOLUME 93 fl (80-97); MONOCYTES % (AUTO) 3.2 % (3-13); PLATELET COUNT 226 10^3/uL (150-450); RED BLOOD COUNT 4.23 10^6/uL (3.72-5.28); RED CELL DISTRIBUTION WIDTH 13.6 % (11.5-14.0); SEGMENTED NEUTROPHILS % (AUTO) 85.5 % (42-78); TOTAL CELLS COUNTED % (AUTO) 100 %; WHITE BLOOD COUNT 6.6 10^3/uL (4.0-10.5)
[2018-10-14 05:59] LABS: APPEARANCE,URINE SLIGHTLY-CLOUDY; BILIRUBIN,URINE NEGATIVE (NEGATIVE); COLOR,URINE YELLOW; GLUCOSE, URINE NEGATIVE (NEGATIVE); KETONES,URINE 80 mg/dL (NEGATIVE); LEUKOCYTE ESTERASE,URINE NEGATIVE (NEGATIVE); NITRITE,URINE NEGATIVE (NEGATIVE); PROTEIN,URINE 100 mg/dL (NEGATIVE); URINE SPECIFIC GRAVITY 1.027
[2018-10-14 06:04] LABS: ALBUMIN 4.3 g/dL (3.5-5.0); ALKALINE PHOSPHATASE 39 U/L (38-126); ANION GAP 12 (5-19); ASPARTATE AMINO TRANSFERASE 28 U/L (14-36); BILIRUBIN,DIRECT 0.3 mg/dL (0.0-0.4); BLOOD UREA NITROGEN 17 mg/dL (7-20); CALCIUM 9.7 mg/dL (8.4-10.2); CARBON DIOXIDE 25 mmol/L (22-30); CHLORIDE 105 mmol/L (98-107); GLUCOSE 137 mg/dL (75-110); POTASSIUM 3.3 mmol/L (3.6-5.0); TOTAL PROTEIN 7.2 g/dL (6.3-8.2)
[2018-10-14] MEDS ORDERED: DIPHENHYDRAMINE HCL 50 MG/ML VIAL IV ONE (06:35)
[2018-10-14] MEDS ORDERED: METOCLOPRAMIDE HCL INJ/PF 10 MG/2 ML SDV IV ONE (06:35)
--- NOTE | 2018-10-14 06:51 | ER Document Report ---
ED General - General Chief Complaint: Nausea/Vomiting Stated Complaint: NAUSEA/VOMITING Time Seen by Provider: 10/14/18 06:21 Mode of Arrival: Ambulatory Information source: Patient Notes: 38 year old with nausea and vomiting and loose watery stool for 2 days. Associated with onset of menstral period. No fever or chills. She has no pain when I see her but tells me her nausea is unchanged after the zofran. NS infusiing. No travel or sick contacts. TRAVEL OUTSIDE OF THE [place] IN LAST 30 DAYS: No - HPI Patient complains to provider of: nausea Onset: Other Onset/Duration: Gradual Quality of pain: Achy, Cramping Severity: Mild Associated symptoms: Diarrhea, Nausea, Vomiting Exacerbated by: Denies - Related Data Allergies/Adverse Reactions: No Known Allergies Allergy (Verified 10/16/17 17:12) Past Medical History - Social History Smoking Status: Current Every Day Smoker Chew tobacco use (# tins/day): No Frequency of alcohol use: Occasional Drug Abuse: None Family History: Reviewed & Not Pertinent Patient has suicidal ideation: No Patient has homicidal ideation: No Renal/ Medical History: Reports: Hx Ovarian Cysts. Denies: Hx Peritoneal Dialysis Past Surgical History: Reports: Hx Oral Surgery - wisodm teeth, Hx Orthopedic Surgery - knee surgery - Immunizations Immunizations up to date: Yes Hx Diphtheria, Pertussis, Tetanus Vaccination: Yes Review of Systems - Review of Systems Constitutional: No symptoms reported EENT: No symptoms reported Cardiovascular: No symptoms reported Respiratory: No symptoms reported Gastrointestinal: See HPI, Diarrhea, Nausea, Vomiting Genitourinary: No symptoms reported Female Genitourinary: No symptoms reported Musculoskeletal: No symptoms reported Skin: No symptoms reported Hematologic/Lymphatic: No symptoms reported Neurological/Psychological: No symptoms reported Physical Exam - Vital signs Vitals: Temp Pulse Resp BP Pulse Ox 98.1 F 48 L 20 172/81 H 100 10/14/18 03:47 10/14/18 03:47 10/14/18 03:47 10/14/18 03:47 10/14/18 03:47 Interpretation: Normal - General General appearance: Appears well, Alert - HEENT Head: Normocephalic, Atraumatic Eyes: Normal Pupils: PERRL Mucous membranes: Dry - Respiratory Respiratory status: No respiratory distress Chest status: Nontender Breath sounds: Normal Chest palpation: Normal - Cardiovascular Rhythm: Regular Heart sounds: Normal auscultation Murmur: No - Abdominal Inspection: Normal Distension: No distension Bowel sounds: Normal Tenderness: Nontender Organomegaly: No organomegaly - Back Back: Nontender - Extremities General upper extremity: Normal inspection, Nontender, Normal color, Normal ROM, Normal temperature General lower extremity: Normal inspection, Nontender, Normal color, Normal ROM, Normal temperature. No: Olga Lidia's sign - Neurological Neuro grossly intact: Yes Cognition: Normal Orientation: AAOx4 [place] Coma Scale Eye Opening: Spontaneous Janay Coma Scale Verbal: Oriented Janay Coma Scale Motor: Obeys Commands Janay Coma Scale Total: 15 Speech: Normal Sensory: Normal - Psychological Associated symptoms: Normal affect, Normal mood - Skin Skin Temperature: Warm Skin Moisture: Dry Skin Color: Normal Course - Re-evaluation Re-evalutation: 10/14/18 07:42 Upon recheck pt feels improved. We discussed return precautions and she expressed understanding. Feel this represents enteritis. - Vital Signs Vital signs: Temp Pulse Resp BP Pulse Ox 98.1 F 48 L 20 172/81 H 100 10/14/18 03:47 10/14/18 03:47 10/14/18 03:47 10/14/18 03:47 10/14/18 03:47 - Laboratory Result Diagrams: 10/14/18 05:01 10/14/18 05:30 Laboratory results interpreted by me: 10/14/18 10/14/18 10/14/18 05:01 05:30 05:40 Lymph % (Auto) 10.8 L Seg Neutrophils % 85.5 H Potassium 3.3 L Glucose 137 H Urine Protein 100 H Urine Ketones 80 H Urine Blood LARGE H Urine Urobilinogen 2.0 H Discharge - Discharge Clinical Impression: Enteritis Condition: Good Disposition: HOME, SELF-CARE Instructions: Clear Liquid Diet ([facility]) Additional Instructions: Clear liquids, gatoraide, popsicles. Please return here for any problems or any concerns. Your blood pressure was elevated here. Be sure and have it rechecked. Prescriptions: Promethazine HCl [Phenergan] 12.5 mg RC TID #8 supp.rect Ondansetron HCl [Zofran 4 mg Tablet] 1 - 2 tab PO Q4H PRN #10 tablet PRN Reason:
[2018-10-14 08:07] VITALS: BP 160/89
== END 2018-10-14 08:13 | disposition home or self-care (01) ==
LOC: ER 03:33
DX: K52.9 Noninfective gastroenteritis and colitis, unspecified (principal); R11.2 Nausea with vomiting, unspecified; F17.200 Nicotine dependence, unspecified, uncomplicated
CPT/HCPCS: 99283; 96374; 96375; 36415; 85025; 81025; 80053; 81001; J1200; J2765; J2405

== ENCOUNTER 2019-02-01 20:34 | Emergency (ER) | payer SELFPAY ==
[2019-02-01] MEDS ORDERED: NORMAL SALINE 1000 ML 1,000 ML IV ONE (21:59)
[2019-02-01] MEDS ORDERED: ONDANSETRON HCL INJ/PF 4 MG/2 ML SDV IV ONE (21:59)
[2019-02-01] MEDS ORDERED: KETOROLAC TROMETHAMINE INJ/PF 30 MG/1 ML SDV IV ONE (21:59)
--- NOTE | 2019-02-01 22:01 | ER Document Report ---
ED Medical Screen (RME) - General Chief Complaint: Abdominal Pain Stated Complaint: ABDOMINAL PAIN/VOMITING/CANT EAT Time Seen by Provider: 02/01/19 21:55 Mode of Arrival: Wheelchair Information source: Patient Notes: 38-year-old female with history of ovarian cyst presents emergency department with reports that she has been vomiting since 6:00 this morning. She reports she started her menses last night and started having abdominal pain that radiates to her back with vomiting. She reports this is typical of her ovarian cyst. Denies fever or diarrhea. Patient is actively vomiting I have greeted and performed a rapid initial assessment of this patient. A comprehensive ED assessment and evaluation of the patient, analysis of test results and completion of the medical decision making process will be conducted by additional ED providers. TRAVEL OUTSIDE OF THE [place] IN LAST 30 DAYS: No - Related Data Allergies/Adverse Reactions: No Known Allergies Allergy (Verified 10/16/17 17:12) Past Medical History Renal/ Medical History: Reports: Hx Ovarian Cysts. Denies: Hx Peritoneal Dialysis Past Surgical History: Reports: Hx Oral Surgery - wisodm teeth, Hx Orthopedic Surgery - knee surgery - Immunizations Immunizations up to date: Yes Hx Diphtheria, Pertussis, Tetanus Vaccination: Yes Physical Exam - Vital signs Vitals: Temp Pulse Resp BP Pulse Ox 97.5 F 53 L 20 145/82 H 100 02/01/19 20:52 02/01/19 20:52 02/01/19 20:52 02/01/19 20:52 02/01/19 20:52 Course - Vital Signs Vital signs: Temp Pulse Resp BP Pulse Ox 97.5 F 53 L 20 145/82 H 100 02/01/19 20:52 02/01/19 20:52 02/01/19 20:52 02/01/19 20:52 02/01/19 20:52
[2019-02-01] MEDS ORDERED: METOCLOPRAMIDE HCL INJ/PF 10 MG/2 ML SDV IV ONE (22:27)
[2019-02-01 22:30] LABS: ABSOLUTE LYMPHOCYTES (AUTO) 0.6 10^3/uL (0.5-4.7); ABSOLUTE MONOCYTES (AUTO) 0.2 10^3/uL (0.1-1.4); ABSOLUTE NEUT (AUTO) 4.4 10^3/uL (1.7-8.2); BASOPHILS % (AUTO) 0.4 % (0-2); HEMATOCRIT 36.7 % (36.0-47.0); HEMOGLOBIN 12.2 g/dL (12.0-15.5); LYMPHOCYTES % (AUTO) 11.6 % (13-45); MEAN CORPUSCULAR HEMOGLOBIN 31.3 pg (27.0-33.4); MEAN CORPUSCULAR HGB CONC 33.2 g/dL (32.0-36.0); MEAN CORPUSCULAR VOLUME 94 fl (80-97); MONOCYTES % (AUTO) 4.4 % (3-13); PLATELET COUNT 216 10^3/uL (150-450); RED BLOOD COUNT 3.88 10^6/uL (3.72-5.28); SEGMENTED NEUTROPHILS % (AUTO) 83.6 % (42-78); TOTAL CELLS COUNTED % (AUTO) 100 %; WHITE BLOOD COUNT 5.2 10^3/uL (4.0-10.5)
[2019-02-01 22:46] LABS: ALBUMIN 4.4 g/dL (3.5-5.0); ALKALINE PHOSPHATASE 44 U/L (38-126); ANION GAP 13 (5-19); ASPARTATE AMINO TRANSFERASE 33 U/L (14-36); BILIRUBIN,DIRECT 0.1 mg/dL (0.0-0.4); BILIRUBIN,TOTAL 1.1 mg/dL (0.2-1.3); BLOOD UREA NITROGEN 17 mg/dL (7-20); CALCIUM 9.6 mg/dL (8.4-10.2); CARBON DIOXIDE 23 mmol/L (22-30); CHLORIDE 106 mmol/L (98-107); GLUCOSE 151 mg/dL (75-110); POTASSIUM 3.6 mmol/L (3.6-5.0); TOTAL PROTEIN 7.4 g/dL (6.3-8.2)
[2019-02-02 00:25] LABS: APPEARANCE,URINE CLEAR; BILIRUBIN,URINE NEGATIVE (NEGATIVE); COLOR,URINE YELLOW; GLUCOSE, URINE 50 mg/dL (NEGATIVE); KETONES,URINE 80 mg/dL (NEGATIVE); LEUKOCYTE ESTERASE,URINE NEGATIVE (NEGATIVE); NITRITE,URINE NEGATIVE (NEGATIVE); PROTEIN,URINE 100 mg/dL (NEGATIVE); URINE SPECIFIC GRAVITY 1.025
[2019-02-02] MEDS ORDERED: NORMAL SALINE 1000 ML 1,000 ML IV ONE (01:40)
[2019-02-02] MEDS ORDERED: METOCLOPRAMIDE HCL ORAL SOLN 10 MG/10 ML UDCUP PO ONE (01:56)
[2019-02-02] MEDS ORDERED: LIDOCAINE 2% VISCOUS SOLN 20 ML UDCUP PO ONE (01:56)
[2019-02-02] MEDS ORDERED: MAG HYDROX/AL HYDROX/SIMETH SUSP 30 ML UDCUP PO ONE (01:56)
--- NOTE | 2019-02-02 01:57 | ER Document Report ---
ED GI/ - General Chief Complaint: Abdominal Pain Stated Complaint: ABDOMINAL PAIN/VOMITING/CANT EAT Time Seen by Provider: 02/01/19 21:55 Mode of Arrival: Wheelchair Notes: Patient is a 38-year-old female that comes emergency department for chief complaint of vomiting and abdominal pain. She states that she is having cramping, bleeding, and she frequently has very painful menstrual cycles with "cysts" that get like this. She states this is common for her. She states she vomited very many times at home so she came in for evaluation. She has received medications and fluids from triage, she states right now she actually feels a lot better. She states she does have a history of ovarian cyst but never has had a large/torsion/removed ones. She reports reflux now and some vague nausea but otherwise she has no complaints. TRAVEL OUTSIDE OF THE [place] IN LAST 30 DAYS: No - Related Data Allergies/Adverse Reactions: No Known Allergies Allergy (Verified 10/16/17 17:12) Past Medical History - General Information source: Patient - Social History Smoking Status: Current Every Day Smoker Chew tobacco use (# tins/day): No Frequency of alcohol use: Occasional Drug Abuse: None Lives with: Family Family History: Reviewed & Not Pertinent Patient has suicidal ideation: No Patient has homicidal ideation: No Renal/ Medical History: Reports: Hx Ovarian Cysts. Denies: Hx Peritoneal Dialysis Past Surgical History: Reports: Hx Oral Surgery - wisodm teeth, Hx Orthopedic Surgery - knee surgery - Immunizations Immunizations up to date: Yes Hx Diphtheria, Pertussis, Tetanus Vaccination: Yes Review of Systems - Review of Systems Constitutional: No symptoms reported EENT: No symptoms reported Cardiovascular: No symptoms reported Respiratory: No symptoms reported Gastrointestinal: See HPI Genitourinary: See HPI Female Genitourinary: See HPI Musculoskeletal: No symptoms reported Skin: No symptoms reported Hematologic/Lymphatic: No symptoms reported Neurological/Psychological: No symptoms reported Physical Exam - Vital signs Vitals: Temp Pulse Resp BP Pulse Ox 97.5 F 53 L 20 145/82 H 100 02/01/19 20:52 02/01/19 20:52 02/01/19 20:52 02/01/19 20:52 02/01/19 20:52 - Notes Notes: GENERAL: Sleeping and easily aroused HEAD: Normocephalic, atraumatic. EYES: Pupils equal, round, and reactive to light. Extraocular movements intact. ENT: Oral mucosa moist, tongue midline. Oropharynx unremarkable. Airway patent. LUNGS: Clear to auscultation bilaterally, no wheezes, rales, or rhonchi. No respiratory distress. HEART: Regular rate and rhythm. No murmur ABDOMEN: Soft, non-tender. Non-distended. Bowel sounds present in all 4 quadrants. GENITOURINARY: Deferred EXTREMITIES: Moves all 4 extremities spontaneously. No edema, normal radial and dorsalis pedis pulses bilaterally. No cyanosis. BACK: no cervical, thoracic, lumbar midline tenderness. No saddle anesthesia, normal distal neurovascular exam. Moves all extremities in full range of motion. NEUROLOGICAL: Alert and oriented x3. Normal speech. Cranial nerves II through XII grossly intact. PSYCH: Normal affect, normal mood. SKIN: Warm, dry, normal turgor. No rashes or lesions noted. Course - Re-evaluation Re-evalutation: Patient is actually well appearing on my evaluation. Her abdomen is soft and benign. She denies current abdominal pain. No flank pain. No tachycardia. She states she feels much better after initial IV fluids and nausea medication. Patient sat up, started having bad reflux, requested treatment for this. She states she would like to try p.o. fluids. She was provided with GI cocktail and p.o. fluids. CBC nonspecific, chemistry nonspecific, urinalysis shows dehydration with 80 ketones. test negative. I did discuss ultrasound because of patient's reported cysts and symptoms but she declined. I do have a very low suspicion of torsion or emergent intra-abdominal abnormality based on her benign exam and lack of current symptoms. She will be given additional IV fluids and p.o. challenge. Patient tolerated p.o. without any difficulty, feels much better on evaluation, she will be discharged with symptom management and return precautions. Patient states understanding and agreement - Vital Signs Vital signs: Temp Pulse Resp BP Pulse Ox 98.8 F 60 16 159/82 H 100 02/02/19 03:40 02/02/19 03:40 02/02/19 03:40 02/02/19 03:40 02/02/19 03:40 - Laboratory Result Diagrams: 02/01/19 22:11 02/01/19 22:11 Laboratory results interpreted by me: 02/01/19 02/01/19 02/02/19 22:11 22:11 00:00 Lymph % (Auto) 11.6 L Seg Neutrophils % 83.6 H Glucose 151 H Lipase 22.6 L Urine Protein 100 H Urine Glucose (UA) 50 H Urine Ketones 80 H Urine Blood SMALL H Urine Urobilinogen 2.0 H Urine Ascorbic Acid 20 H Discharge - Discharge Clinical Impression: Dehydration Vomiting Qualifiers: Vomiting type: unspecified Vomiting Intractability: non-intractable Nausea presence: with nausea Qualified Code(s): R11.2 - Nausea with vomiting, unspecified Abdominal pain Qualifiers: Abdominal location: generalized Qualified Code(s): R10.84 - Generalized abdominal pain Condition: Stable Disposition: HOME, SELF-CARE Additional Instructions: Your test is negative. You were treated here tonight for dehydration and vomiting. Take nausea medication as prescribed, start with bland food, take the ranitidine as prescribed for the next several days during your recovery, drink plenty of fluids. Follow-up with primary care for additional management. Return if you worsen including returned pain, fever, uncontrolled vomiting, or any other concerning or worsening symptoms. Prescriptions: Metoclopramide HCl [Reglan] 5 mg PO ASDIR PRN #30 tablet PRN Reason: Forms: Return to Work
[2019-02-02 03:41] VITALS: BP 159/82
== END 2019-02-02 04:05 | disposition home or self-care (01) ==
LOC: ER 20:34
DX: E86.0 Dehydration (principal); R11.2 Nausea with vomiting, unspecified; R10.84 Generalized abdominal pain; F17.200 Nicotine dependence, unspecified, uncomplicated
CPT/HCPCS: 99284; 96361; 96374; 96375; 36415; 83690; 85025; 81025; 80053; 81001; J3490; J1885; J2765; J2405; J7030 ×2

== ENCOUNTER 2019-07-24 12:31 | Emergency (ER) | payer SELFPAY ==
[2019-07-24] MEDS ORDERED: ONDANSETRON HCL INJ/PF 4 MG/2 ML SDV IV ONE (14:57)
[2019-07-24] MEDS ORDERED: NORMAL SALINE 1000 ML 1,000 ML IV ONE (14:57)
--- NOTE | 2019-07-24 14:59 | ER Document Report ---
ED GI/ - General Chief Complaint: Nausea/Vomiting Stated Complaint: VOMITING Time Seen by Provider: 07/24/19 14:44 Primary Care Provider: RAOUL ARROYO MD [ACTIVE STAFF] - Follow up as needed Mode of Arrival: Ambulatory Information source: Patient Notes: 38-year-old female past medical history significant for ovarian cysts presents to the emergency room complaining of nausea, vomiting and pelvic pain that started yesterday. Describes the pain as cramping. Patient states she started her menstrual cycle 2 days ago and gets nauseous occasionally her cycles but this time is worse. States has not been able to tolerate anything p.o., has not taken any medications for her pain. Drove self to the emergency room. TRAVEL OUTSIDE OF THE [place] IN LAST 30 DAYS: No - Related Data Allergies/Adverse Reactions: No Known Allergies Allergy (Verified 10/16/17 17:12) Past Medical History - General Information source: Patient - Social History Smoking Status: Former Smoker Chew tobacco use (# tins/day): No Frequency of alcohol use: Occasional Drug Abuse: None Family History: Reviewed & Not Pertinent Patient has homicidal ideation: No Renal/ Medical History: Reports: Hx Ovarian Cysts. Denies: Hx Peritoneal Dialysis Past Surgical History: Reports: Hx Oral Surgery - wisodm teeth, Hx Orthopedic Surgery - knee surgery - Immunizations Immunizations up to date: Yes Hx Diphtheria, Pertussis, Tetanus Vaccination: Yes Review of Systems - Review of Systems Constitutional: No symptoms reported Cardiovascular: No symptoms reported Respiratory: No symptoms reported Gastrointestinal: Nausea, Vomiting. denies: Abdominal pain, Diarrhea, Constipation Genitourinary: No symptoms reported Female Genitourinary: Other - Pelvic pain Skin: No symptoms reported -: Yes All other systems reviewed and negative Physical Exam - Vital signs Vitals: Temp 97.8 F 07/24/19 12:31 - Notes Notes: VITAL SIGNS: Within normal limits. GENERAL: Mild acute distress, non-toxic appearance. HEAD: Normal with no signs of head trauma. EYES: PERRLA, EOMI, conjunctiva normal, no discharge. EARS: Hearing grossly intact. NOSE: Normal. THROAT: Oropharynx is normal. NECK: Normal range of motion, no tenderness, supple, no lymphadenopathy, No adenopathy, no JVD. CHEST: Clear breath sounds bilaterally. No wheezes, rales, or rhonchi. CARDIAC: Regular rate and rhythm. S1 and S2, without murmurs, gallops, or rubs. VASCULAR: No Edema. Peripheral pulses normal and equal in all extremities. ABDOMEN: Normal and soft with no tenderness, no masses or pulsatile masses. GASTROINTESTINAL: Bowel sounds normal GENITOURINARY: Normal, No tenderness LYMPATHTIC: No lymphadenopathy noted. MUSCULOSKELETAL: Good range of motion of all major joints. Extremities without clubbing, cyanosis or edema. NEUROLOGICAL: Alert and oriented x 3. No focal sensory or strength deficits. Speech normal. Follows commands appropriately. PSYCHIATRIC: Normal Affect, judgement and mood. SKIN: Normal appearance with no rashes or lesions. Course - Re-evaluation Re-evalutation: 07/24/19 18:37 Patient is resting comfortably with decreased pain. Denies any current nausea or vomiting. Reviewed all test results with patient. Will do p.o. challenge discharge patient home on Zofran. Tylenol and/or Motrin as needed for pain. Outpatient follow-up with [facility] as discussed. Patient will be provided with the on-call physician. Patient was given strict return to the emergency room guidelines. Return for any new or worsening symptoms. All questions were answered. Patient verbalized understanding and agrees with plan of care. 07/24/19 19:26 Patient is unable to tolerate p.o. fluids. She is pain-free on exam. Stable to be discharged home. - Vital Signs Vital signs: Temp Pulse Resp BP Pulse Ox 98.6 F 73 14 145/90 H 100 07/24/19 14:11 07/24/19 14:11 07/24/19 14:11 07/24/19 14:11 07/24/19 14:11 - Laboratory Result Diagrams: 07/24/19 16:11 07/24/19 16:50 Laboratory results interpreted by me: 07/24/19 07/24/19 07/24/19 16:11 16:50 17:10 RBC 3.41 L Hgb 11.0 L Hct 32.2 L RDW 14.2 H Potassium 3.5 L AST 37 H Urine Protein 100 H Urine Glucose (UA) 50 H Urine Ketones 20 H Urine Blood LARGE H Urine Urobilinogen 2.0 H Ur Leukocyte Esterase TRACE H Urine Ascorbic Acid 40 H - Diagnostic Test Radiology reviewed: Reports reviewed Discharge - Discharge Clinical Impression: Left ovarian cyst Nausea and vomiting Qualifiers: Vomiting type: unspecified Vomiting Intractability: non-intractable Qualified Code(s): R11.2 - Nausea with vomiting, unspecified Condition: Stable Disposition: HOME, SELF-CARE Instructions: Antinausea Medication ([facility]), Ovarian Cyst ([facility]), Vomiting ([facility]) Additional Instructions: Today been diagnosed with an ovarian cyst. These typically occur in the middle of your typical menstrual cycle. The pain should last for no more than 3-4 days. For your pain: Take ibuprofen 600 mg and acetaminophen 1000 mg every 6 hours together as needed for pain. Please follow-up with your [facility] regarding today's visit. If you have multiple recurrent cyst that continue to cause you pain like this, you may require hormone therapy such as oral control pills to prevent recurrence of the same. Return if you develop fever, nausea, vomiting, worsening abdominal pain, pass out, or have any other symptoms that are worrisome to you. You have been seen in the Emergency Department (ED) today for nausea and vomiting. Your work up today has not shown a clear cause for your symptoms. You have been prescribed Zofran; please use as prescribed as needed for your nausea. Follow up with your doctor as soon as possible regarding today's emergent visit and your symptoms of nausea. Return to the Emergency Department (ED) if you develop abdominal pain, bloody vomiting, bloody diarrhea, if you are unable to tolerate fluids due to vomiting, or if you develop other symptoms that concern you. Prescriptions: Ondansetron [Zofran Odt 4 mg Tablet] 1 tab PO Q4H PRN #15 tab.rapdis PRN Reason: For Nausea/Vomiting Referrals: RAOUL ARROYO MD [ACTIVE STAFF] - Follow up as needed
--- NOTE | 2019-07-24 16:17 | RADIOLOGY REPORT (SQ) ---
EXAM DESCRIPTION: U/S NON OB PEL TV W/DOPPLER IMAGES COMPLETED DATE/TIME: 07/24/2019 4:05 pm REASON FOR STUDY: pelvic pain COMPARISON: 01/08/2018 TECHNIQUE: Dynamic and static grayscale images acquired of the pelvis via transvaginal approach and recorded on PACS. Additional selected color Doppler and spectral images recorded. LIMITATIONS: None. FINDINGS: UTERUS: Contour normal. No mass. ENDOMETRIAL STRIPE: No focal or generalized thickening. No masses. CERVIX: The cervix measures 2.6 cm in length. No nabothian cysts. RIGHT OVARY AND DOPPLER: Normal size. No worrisome masses. Normal arterial vascular flow without evid ence for torsion. LEFT OVARY AND DOPPLER: Left para ovarian cyst is again identified which measures 2.6 x 2.0 x 1.3 cm on the current examination compared to 2.9 x 1.3 x 1.2 cm on the prior study. Normal arterial vascu lar flow without evidence for torsion. FREE FLUID: None noted. OTHER: No other significant finding. MEASUREMENTS: UTERUS: 8.0 x 5.7 x 4.8 cm ENDOMETRIAL STRIPE: 6.0 mm RIGHT OVARY: 3.4 x 3.2 x 2.0 cm. LEFT OVARY: 3.7 x 2.6 x 2.1 cm. IMPRESSION: 1. As on the prior study dated 01/08/2018, left paraovarian cyst with measurements as ab ove. 2. Examination is otherwise unremarkable sonographically. TECHNICAL DOCUMENTATION: JOB ID: [id number] 2010 [employer]- All Rights Reserved Rev-06/24 Reading location - IP/workstation name: [email or web address]
[2019-07-24 16:21] LABS: ABSOLUTE LYMPHOCYTES (AUTO) 1.2 10^3/uL (0.5-4.7); ABSOLUTE MONOCYTES (AUTO) 0.6 10^3/uL (0.1-1.4); ABSOLUTE NEUT (AUTO) 6.5 10^3/uL (1.7-8.2); BASOPHILS % (AUTO) 0.5 % (0-2); EOSINOPHILS % (AUTO) 0.3 % (0-6); HEMATOCRIT 32.2 % (36.0-47.0); LYMPHOCYTES % (AUTO) 14.8 % (13-45); MEAN CORPUSCULAR HEMOGLOBIN 32.1 pg (27.0-33.4); MEAN CORPUSCULAR HGB CONC 34.1 g/dL (32.0-36.0); MEAN CORPUSCULAR VOLUME 94 fl (80-97); MONOCYTES % (AUTO) 7.2 % (3-13); PLATELET COUNT 222 10^3/uL (150-450); RED BLOOD COUNT 3.41 10^6/uL (3.72-5.28); RED CELL DISTRIBUTION WIDTH 14.2 % (11.5-14.0); SEGMENTED NEUTROPHILS % (AUTO) 77.2 % (42-78); TOTAL CELLS COUNTED % (AUTO) 100 %; WHITE BLOOD COUNT 8.4 10^3/uL (4.0-10.5)
[2019-07-24 17:36] LABS: APPEARANCE,URINE CLOUDY; BILIRUBIN,URINE NEGATIVE (NEGATIVE); GLUCOSE, URINE 50 mg/dL (NEGATIVE); KETONES,URINE 20 mg/dL (NEGATIVE); LEUKOCYTE ESTERASE,URINE TRACE (NEGATIVE); NITRITE,URINE NEGATIVE (NEGATIVE); PROTEIN,URINE 100 mg/dL (NEGATIVE)
[2019-07-24 17:37] LABS: COLOR,URINE AMBER
[2019-07-24 17:46] LABS: ALBUMIN 4.1 g/dL (3.5-5.0); ALKALINE PHOSPHATASE 38 U/L (38-126); ANION GAP 7 (5-19); ASPARTATE AMINO TRANSFERASE 37 U/L (14-36); BILIRUBIN,TOTAL 0.8 mg/dL (0.2-1.3); BLOOD UREA NITROGEN 16 mg/dL (7-20); CALCIUM 9.3 mg/dL (8.4-10.2); CARBON DIOXIDE 29 mmol/L (22-30); CHLORIDE 102 mmol/L (98-107); GLUCOSE 100 mg/dL (75-110); POTASSIUM 3.5 mmol/L (3.6-5.0); TOTAL PROTEIN 6.9 g/dL (6.3-8.2)
[2019-07-24] MEDS ORDERED: KETOROLAC TROMETHAMINE INJ/PF 30 MG/1 ML SDV IV ONE (18:08)
[2019-07-24 19:47] VITALS: BP 105/70
== END 2019-07-24 19:54 | disposition home or self-care (01) ==
LOC: ER 12:31
DX: R11.2 Nausea with vomiting, unspecified (principal); N83.202 Unspecified ovarian cyst, left side; R10.2 Pelvic and perineal pain; Z87.891 Personal history of nicotine dependence
CPT/HCPCS: 99284; 96361; 96374; 96375; 36415; 84703; 85025; 80053; 81001; 76830; 93976; J1885; J2405; J7030

== ENCOUNTER 2019-12-09 00:17 | Emergency (ER) | payer SELFPAY ==
[2019-12-09] MEDS ORDERED: ONDANSETRON HCL INJ/PF 4 MG/2 ML SDV IV ONE (00:28)
[2019-12-09] MEDS ORDERED: NORMAL SALINE 1000 ML 1,000 ML IV ONE (00:28)
--- NOTE | 2019-12-09 00:30 | ER Document Report ---
ED Medical Screen (RME) - General Stated Complaint: CRAMPS NAUSEA VOMITTING Time Seen by Provider: 12/09/19 00:24 Information source: Patient Notes: Patient presents complaining of lower pelvic pain with her menstrual cycle that started today. Patient reports nausea vomiting over 20 times today. Patient denies any diarrhea. Patient denies any fever, cough or cold symptoms. Patient denies any urinary symptoms. Patient states she has a history of ovarian cyst and suspects the same today. I have greeted and performed a rapid initial assessment of this patient. A comprehensive ED assessment and evaluation of the patient, analysis of test results and completion of the medical decision making process will be conducted by additional ED providers. TRAVEL OUTSIDE OF THE [place] IN LAST 30 DAYS: No - Related Data Allergies/Adverse Reactions: No Known Allergies Allergy (Verified 10/16/17 17:12) Past Medical History Renal/ Medical History: Reports: Hx Ovarian Cysts. Denies: Hx Peritoneal Dialysis Past Surgical History: Reports: Hx Oral Surgery - wisodm teeth, Hx Orthopedic Surgery - knee surgery - Immunizations Immunizations up to date: Yes Hx Diphtheria, Pertussis, Tetanus Vaccination: Yes Physical Exam - General General appearance: Lethargic - Abdominal Tenderness: Tender - Lower pelvic tenderness
[2019-12-09 01:18] LABS: ABSOLUTE LYMPHOCYTES (AUTO) 0.6 10^3/uL (0.5-4.7); ABSOLUTE MONOCYTES (AUTO) 0.3 10^3/uL (0.1-1.4); ABSOLUTE NEUT (AUTO) 9.6 10^3/uL (1.7-8.2); BASOPHILS % (AUTO) 0.2 % (0-2); EOSINOPHILS % (AUTO) 0.1 % (0-6); HEMATOCRIT 38.4 % (36.0-47.0); HEMOGLOBIN 13.1 g/dL (12.0-15.5); LYMPHOCYTES % (AUTO) 5.4 % (13-45); MEAN CORPUSCULAR HEMOGLOBIN 31.9 pg (27.0-33.4); MEAN CORPUSCULAR VOLUME 94 fl (80-97); MONOCYTES % (AUTO) 3.1 % (3-13); RED BLOOD COUNT 4.09 10^6/uL (3.72-5.28); SEGMENTED NEUTROPHILS % (AUTO) 91.2 % (42-78); TOTAL CELLS COUNTED % (AUTO) 100 %; WHITE BLOOD COUNT 10.6 10^3/uL (4.0-10.5)
--- NOTE | 2019-12-09 01:36 | ER Document Report ---
ED General - General Chief Complaint: Abdominal Pain Stated Complaint: CRAMPS NAUSEA VOMITTING Time Seen by Provider: 12/09/19 00:24 Primary Care Provider: [facility] [Provider Group] - Follow up as needed TRAVEL OUTSIDE OF THE [place] IN LAST 30 DAYS: No - HPI Notes: Patient is a 39 y/o female with a hx of ovarian cysts who presents with nausea and vomiting that began one day ago. Patient states she started her menstrual period and started throwing up. Patient states she has nausea and vomiting with her period every month and she is unable to take any medication as she can't keep it down. She has had prescriptions for reglan and zofran which have provided some relief. She has not been able to keep anything down today including water. She endorses abdominal cramping that is typical of her period. She denies chest pain, shortness of breath, diarrhea, fever, headache, and dysuria. - Related Data Allergies/Adverse Reactions: No Known Allergies Allergy (Verified 10/16/17 17:12) Past Medical History - General Information source: Patient - Social History Smoking Status: Former Smoker Chew tobacco use (# tins/day): No Frequency of alcohol use: Occasional Drug Abuse: None Family History: Reviewed & Not Pertinent Renal/ Medical History: Reports: Hx Ovarian Cysts. Denies: Hx Peritoneal Dialysis Past Surgical History: Reports: Hx Oral Surgery - wisodm teeth, Hx Orthopedic Surgery - knee surgery - Immunizations Immunizations up to date: Yes Hx Diphtheria, Pertussis, Tetanus Vaccination: Yes Review of Systems - Review of Systems Constitutional: No symptoms reported EENT: No symptoms reported Cardiovascular: No symptoms reported Respiratory: No symptoms reported Gastrointestinal: See HPI Genitourinary: No symptoms reported Female Genitourinary: No symptoms reported Musculoskeletal: No symptoms reported Skin: No symptoms reported Hematologic/Lymphatic: No symptoms reported Neurological/Psychological: No symptoms reported Physical Exam - Vital signs Vitals: Temp Pulse Resp BP Pulse Ox 97.9 F 52 L 16 142/65 H 100 12/09/19 00:31 12/09/19 00:31 12/09/19 00:31 12/09/19 00:31 12/09/19 00:31 - Notes Notes: PHYSICAL EXAMINATION: VITALS: Vitals reviewed and within normal limits. GENERAL: Well-appearing, well-nourished and in no acute distress. HEAD: Atraumatic, normocephalic. EYES: Pupils equal, round, and reactive to light, extraocular movements intact, sclera anicteric, conjunctiva are normal. ENT: Nares patent. Moist mucous membranes. Oropharynx clear without exudates. NECK: Normal range of motion, supple without lymphadenopathy. LUNGS: Breath sounds clear to auscultation bilaterally and equal. No wheezes, rales, or rhonchi. HEART: Regular, rate, and rhythm without murmurs. ABDOMEN: Soft, nontender, normoactive bowel sounds. No guarding, no rebound. No masses appreciated. EXTREMITIES: Normal range of motion, no pitting or edema. No cyanosis. NEUROLOGICAL: No focal neurological deficits. Moves all extremities spontaneously and on command. PSYCH: Normal mood, normal affect. SKIN: Warm, Dry, normal turgor, no rashes or lesions noted. Course - Re-evaluation Re-evalutation: Patient is a 39 y/o female with a hx of ovarian cysts who presents with nausea and vomiting that began one day ago. Vital signs are within normal limits. On exam, abdomen is soft and nontender. 1 L of of normal saline and 8 mg of IV Zofran ordered. WBC mildly elevated at 10.6. CMP unremarkable. Serum hCG negative. Lipase normal at 27.7. Pelvic ultrasound show no acute sonographic abnormality is seen within the pelvis. 12/09/19 06:04 UA shows elevated protein of 100, elevated ketones of 80, large blood and specific gravity of 1.027. UA is consistent with dehydration. Patient tolerated PO fluids. Patient presentation and work up consistent dehydration and vomiting. Patient will be discharged home with a prescription for reglan. Patient instructed to take the reglan with benadryl and take ibuprofen/tylenol as needed for pain. Return precautions and follow up instructions given. Patient understands and is in agreement with plan. - Vital Signs Vital signs: Temp Pulse Resp BP Pulse Ox 98.8 F 51 L 18 121/69 100 12/09/19 06:24 12/09/19 06:24 12/09/19 03:00 12/09/19 06:24 12/09/19 06:24 - Laboratory Result Diagrams: 12/09/19 01:00 EST 12/09/19 01:00 EST Laboratory results interpreted by me: 12/09/19 12/09/1912/08/20 01:00 EST 01:00 EST 05:15 WBC 10.6 H Lymph % (Auto) 5.4 L Absolute Neuts (auto) 9.6 H Seg Neutrophils % 91.2 H Potassium 3.4 L Glucose 141 H Urine Protein 100 H Urine Ketones 80 H Urine Blood LARGE H Urine Ascorbic Acid 20 H - Diagnostic Test Radiology reviewed: Reports reviewed Radiology results interpreted by me: Pelvis Ultrasound 12/09/19 00:28 IMPRESSION: No acute sonographic abnormality is seen within the pelvis. Discharge - Discharge Clinical Impression: Dehydration Nausea and vomiting Qualifiers: Vomiting type: unspecified Vomiting Intractability: non-intractable Qualified Code(s): R11.2 - Nausea with vomiting, unspecified Abdominal pain Qualifiers: Abdominal location: generalized Qualified Code(s): R10.84 - Generalized abdominal pain Condition: Stable Disposition: HOME, SELF-CARE Additional Instructions: Take reglan as prescribed with benadryl. Take ibuprofen and tylenol as needed for pain. Vomiting Vomiting (or nausea without vomiting) can be caused by many other different problems. It can mean that something's wrong with the stomach, such as ulcers or inflammation or the intestinal tract, such as appendicitis. But it can also be a symptom of a problem that has nothing to do with the stomach or intestines. Vomiting is common with severe headaches, earaches, tonsillitis, and kidney infections, etc. We see it with pneumonia or heart attacks. Drugs can cause nausea and vomiting. Many abdominal problems cause vomiting; for example, gallstones, kidney stones, pancreatitis, and intestinal obstruction (blocked bowels). In most cases, curing the vomiting depends on fixing the problem that caused it. For temporary relief, we may use an anti-nausea medicine. For home use, we can prescribe suppositories, chewable pills, pills that dissolve in the mouth, or liquid anti-nausea drugs. If the vomiting seems to be caused by a problem in the stomach, acid-suppressing drugs may be prescribed as well. It's important to avoid dehydration. Sip small amounts of clear liquids (soft drinks, tea, broth, etc) . Try to take fluids frequently even if you are vomiting to prevent dehydration. Take increasing amounts of fluid and when liquids are being consumed successfully, advance to small amounts of bland food (toast, soups, mashed potatoes, etc.) until you are able to resume a regular diet. Avoid aspirin, tobacco, and alcohol. If the vomiting worsens, if the problem that's making you vomit worsens, or if there's evidence of bleeding in the stomach (such as black, tarry stool, or bloody or black vomit), you should return immediately. Also, return if abdominal pain worsens or becomes localized to one area or you develop high fever. Call your doctor if you aren't improved in 24 hours. Prescriptions: Metoclopramide HCl [Reglan 10 mg Tablet] 1 - 2 tab PO ASDIR PRN #25 tablet PRN Reason: Referrals: [facility] [Provider Group] - Follow up as needed
[2019-12-09 01:37] LABS: ALBUMIN 4.6 g/dL (3.5-5.0); ALKALINE PHOSPHATASE 47 U/L (38-126); ANION GAP 14 (5-19); ASPARTATE AMINO TRANSFERASE 35 U/L (14-36); BILIRUBIN,TOTAL 0.8 mg/dL (0.2-1.3); BLOOD UREA NITROGEN 15 mg/dL (7-20); CALCIUM 9.8 mg/dL (8.4-10.2); CARBON DIOXIDE 24 mmol/L (22-30); CHLORIDE 104 mmol/L (98-107); GLUCOSE 141 mg/dL (75-110); POTASSIUM 3.4 mmol/L (3.6-5.0); TOTAL PROTEIN 7.6 g/dL (6.3-8.2)
[2019-12-09 01:48] LABS: PLATELET COUNT 209 10^3/uL (150-450)
[2019-12-09] MEDS ORDERED: KETOROLAC TROMETHAMINE INJ/PF 30 MG/1 ML SDV IV ONE (03:39)
[2019-12-09] MEDS ORDERED: METOCLOPRAMIDE HCL INJ/PF 10 MG/2 ML SDV IV ONE (03:40)
[2019-12-09] MEDS ORDERED: DIPHENHYDRAMINE HCL 50 MG/ML VIAL IV ONE (03:40)
--- NOTE | 2019-12-09 03:53 | RADIOLOGY REPORT (SQ) ---
Ultrasound of the pelvis: 12/09/2019 2:51 AM [employer]IOR [employer]SULT[employer] HISTORY: 39-year-old patient with pelvic pain, vomiting. TECHNIQUE: Multiple grayscale and color Doppler images of the pelvis were obtained transvaginally. COMPARISON: None available FINDINGS: The uterus measures 8.9 x 4.5 x 5.9 cm. The endometrium measures 3.0 mm in thickness. No myometrial mass is seen. The right ovary measures 2.9 x 1.5 x 3.3 cm. The left ovary measures 2.9 x 1.3 x 3.2 cm. There are bilateral physiologic cysts or follicles present measuring up to 6 mm on the right and 2.3 cm on the left. Normal arterial waveforms were obtained from both ovaries. No free intraperitoneal fluid is seen within the posterior cul-de-sac. IMPRESSION: No acute sonographic abnormality is seen within the pelvis.
[2019-12-09 06:02] LABS: APPEARANCE,URINE SLIGHTLY-CLOUDY; BILIRUBIN,URINE NEGATIVE (NEGATIVE); COLOR,URINE YELLOW; GLUCOSE, URINE NEGATIVE (NEGATIVE); KETONES,URINE 80 mg/dL (NEGATIVE); LEUKOCYTE ESTERASE,URINE NEGATIVE (NEGATIVE); NITRITE,URINE NEGATIVE (NEGATIVE); PROTEIN,URINE 100 mg/dL (NEGATIVE); URINE SPECIFIC GRAVITY 1.027; UROBILINOGEN,URINE NEGATIVE mg/dL (<2.0)
[2019-12-09 06:26] VITALS: BP 121/69
== END 2019-12-09 06:26 | disposition home or self-care (01) ==
LOC: ER 00:17
DX: E86.0 Dehydration (principal); R11.2 Nausea with vomiting, unspecified; R10.84 Generalized abdominal pain
CPT/HCPCS: 99285; 96374; 96375; 36415; 83690; 84703; 85025; 80053; 81001; 76856; 93976; J1200; J1885; J2765; J2405; J7030

== ENCOUNTER 2019-12-10 19:04 | Observation (INO) | payer SELFPAY ==
[2019-12-10] MEDS ORDERED: ONDANSETRON HCL INJ/PF 4 MG/2 ML SDV IV ONE (19:20)
[2019-12-10] MEDS ORDERED: NORMAL SALINE 1000 ML 1,000 ML IV ONE (19:20)
--- NOTE | 2019-12-10 19:21 | ER Document Report ---
ED Medical Screen (RME) - General Chief Complaint: Lower Abdominal Pain Stated Complaint: NAUSEA,VOMITING,EXHAUSTION Time Seen by Provider: 12/10/19 19:18 Mode of Arrival: Wheelchair Information source: Patient Notes: 39 year-old female presents to ED for lower abdominal pain nausea vomiting. She states she is very weak because she cannot eat or drink anything due to the nausea and vomiting. She states she is very fatigued. She states she cannot keep down p.o. or anything. States she was just seen yesterday and was diagnosed with ovarian cyst but she is still nausea and vomiting. She states the pain is worse than it was yesterday. Patient is alert oriented answering all questions appropriately. I have greeted and performed a rapid initial assessment of this patient. A co mprehensive ED assessment and evaluation of the patient, analysis of test results and completion of medical decision making process will be conducted by an additional ED providers. TRAVEL OUTSIDE OF THE [place] IN LAST 30 DAYS: No - Related Data Allergies/Adverse Reactions: No Known Allergies Allergy (Verified 12/10/19 19:33) Past Medical History Renal/ Medical History: Reports: Hx Ovarian Cysts. Denies: Hx Peritoneal Dialysis Past Surgical History: Reports: Hx Oral Surgery - wisodm teeth, Hx Orthopedic Surgery - knee surgery - Immunizations Immunizations up to date: Yes Hx Diphtheria, Pertussis, Tetanus Vaccination: Yes Physical Exam - Vital signs Vitals: Temp Pulse Resp BP Pulse Ox 98.7 F 48 L 18 155/85 H 100 12/10/19 19:46 12/10/19 19:46 12/10/19 19:46 12/10/19 19:46 12/10/19 19:46 Course - Vital Signs Vital signs: Temp Pulse Resp BP Pulse Ox 98.7 F 48 L 18 155/85 H 100 12/10/19 19:46 12/10/19 19:46 12/10/19 19:46 12/10/19 19:46 12/10/19 19:46
[2019-12-10 20:25] LABS: ABSOLUTE MONOCYTES (AUTO) 0.7 10^3/uL (0.1-1.4); ABSOLUTE NEUT (AUTO) 2.5 10^3/uL (1.7-8.2); BASOPHILS % (AUTO) 0.5 % (0-2); EOSINOPHILS % (AUTO) 0.5 % (0-6); LYMPHOCYTES % (AUTO) 37.1 % (13-45); MEAN CORPUSCULAR HEMOGLOBIN 31.9 pg (27.0-33.4); MEAN CORPUSCULAR HGB CONC 34.3 g/dL (32.0-36.0); MEAN CORPUSCULAR VOLUME 93 fl (80-97); MONOCYTES % (AUTO) 14.1 % (3-13); PLATELET COUNT 209 10^3/uL (150-450); RED BLOOD COUNT 4.08 10^6/uL (3.72-5.28); RED CELL DISTRIBUTION WIDTH 13.8 % (11.5-14.0); SEGMENTED NEUTROPHILS % (AUTO) 47.8 % (42-78); TOTAL CELLS COUNTED % (AUTO) 100 %; WHITE BLOOD COUNT 5.3 10^3/uL (4.0-10.5)
[2019-12-10 20:49] LABS: PHOSPHORUS 3.7 mg/dL (2.5-4.5)
[2019-12-10 20:50] LABS: ALKALINE PHOSPHATASE 40 U/L (38-126); ANION GAP 9 (5-19); ASPARTATE AMINO TRANSFERASE 30 U/L (14-36); BLOOD UREA NITROGEN 17 mg/dL (7-20); CALCIUM 8.9 mg/dL (8.4-10.2); CARBON DIOXIDE 29 mmol/L (22-30); CHLORIDE 97 mmol/L (98-107); GLUCOSE 92 mg/dL (75-110); POTASSIUM 3.1 mmol/L (3.6-5.0); TOTAL PROTEIN 6.6 g/dL (6.3-8.2)
--- NOTE | 2019-12-10 21:00 | EKG REPORT ---
SEVERITY:- NORMAL ECG - SINUS BRADYCARDIA : Confirmed by: Bassam Johansen MD 10-Dec-2019 21:00:02
[2019-12-10] MEDS ORDERED: RINGERS SOLUTION,LACTATED 1,000 ML IV ONE (22:31)
[2019-12-10] MEDS ORDERED: CHLORPROMAZINE HCL INJ 25 MG/1 ML AMPULE IM ONE (22:40)
--- NOTE | 2019-12-10 22:51 | ER Document Report ---
ED General - General Chief Complaint: Nausea/Vomiting Stated Complaint: NAUSEA,VOMITING,EXHAUSTION Time Seen by Provider: 12/10/19 19:18 Mode of Arrival: Wheelchair Notes: 39-year-old female history of dysmenorrhea presents with nausea vomiting and bilateral cramping pelvic pain for past few days associated with generalized weakness. Patient says that she has for many years had severe menstrual symptoms including vomiting and significant pelvic pain in the sometimes symptoms are worse when she has to come into the hospital and treated. Patient came to ED for same symptoms approximately 1 day prior and had ultrasound that showed ovarian cyst with normal flow and no emergent findings and was treated with antiemetics and discharge. Patient has tried oral Reglan and Zofran at home and has been unable to keep down any meds or fluids since discharge so she came back to the ED. Note says pelvic pain is worse but patient denies this, says that it is same pain that she is experienced since menses started and that she has had numerous times in the past with prior menses. Patient denies any abdominal pain elsewhere, fever, myalgia, cough, headache, neck pain or stiffness, trauma, syncope, chest pain, shortness of breath, vaginal discharge, urinary symptoms prior abdominal surgeries, hx TRAVEL OUTSIDE OF THE [place] IN LAST 30 DAYS: No - Related Data Allergies/Adverse Reactions: No Known Allergies Allergy (Verified 12/10/19 19:33) Past Medical History - General Information source: Patient - Social History Smoking Status: Former Smoker Family History: Reviewed & Not Pertinent Patient has homicidal ideation: No Renal/ Medical History: Reports: Hx Ovarian Cysts. Denies: Hx Peritoneal Dialysis Past Surgical History: Reports: Hx Oral Surgery - wisodm teeth, Hx Orthopedic Surgery - knee surgery - Immunizations Immunizations up to date: Yes Hx Diphtheria, Pertussis, Tetanus Vaccination: Yes Review of Systems - Review of Systems Notes: REVIEW OF SYSTEMS: CONSTITUTIONAL : Denies fever, chills, or sweats. EENT: Denies recent cold/sinus symptoms, denies throat pain CARDIOVASCULAR: Denies chest pain, MEGAN RESPIRATORY: Denies cough, denies shortness of breath. GASTROINTESTINAL: Denies abdominal pain, +nausea/vomiting. GENITOURINARY: Denies difficulty urinating, painful urination. FEMALE GENITOURINARY: Denies abnormal vaginal bleeding, vaginal discharge. MUSCULOSKELETAL: Denies neck pain, back pain. SKIN: Denies rash or skin lesions. HEMATOLOGIC : Denies easy bruising or bleeding. LYMPHATIC: Denies swollen, enlarged glands. NEUROLOGICAL: Denies vertigo, denies change in gait. PSYCHIATRIC: Denies anxiety or stress or depression. Physical Exam - Vital signs Vitals: Temp Pulse Resp BP Pulse Ox 98.7 F 48 L 18 155/85 H 100 12/10/19 19:46 12/10/19 19:46 12/10/19 19:46 12/10/19 19:46 12/10/19 19:46 - Notes Notes: PHYSICAL EXAMINATION: GENERAL: Uncomfortable but nontoxic-appearing middle-aged woman lying in stretcher in no acute distress holding emesis bag HEAD: Atraumatic, normocephalic. EYES: Pupils equal round and appropriate constriction, sclera anicteric, conjunctiva are normal. ENT: nares patent, dry mucous membranes. NECK: Normal range of motion, supple without lymphadenopathy LUNGS: Breath sounds clear to auscultation bilaterally and equal. No wheezes rales or rhonchi. HEART: Regular rate and rhythm without murmurs ABDOMEN: Soft, nontender, no guarding, no masses, no CVAT, no pelvic tenderness EXTREMITIES: Normal range of motion, no pitting or edema. No cyanosis. NEUROLOGICAL: Awake, alert, conversing appropriately, moves all extremities spontaneously. PSYCH: Normal mood, normal affect. SKIN: Warm, Dry Course - Re-evaluation Re-evalutation: 12/10/19 22:49 Patient with severe dysmenorrhea symptoms with vomiting with failure of outpatient p.o. antiemetic trial. Patient now with hypokalemia secondary to vomiting, will require observation for repletion of electrolytes, IV hydration, and p.o. trial. Discussed patient with Dr. Krause as patient symptoms are secondary to a ENVIRONMENTAL SERVICES COORDINATOR etiology but Dr. Krause said "there is nothing I can do for her" and did not accept patient to his service. Presented patient to hospi talist Dr. Morin who accepted patient to observation. I have ordered IM Thorazine and potassium repletion. No indication to repeat pelvic exam at this time as symptoms have been stable and no emergent findings on exam 1 day prior or ultrasound 1 day prior, no indication to repeat ultrasound, patient feels somewhat improved after antiemetics and hydration, but still feels very nauseous and unlikely to pass p.o. trial at this time without additional symptom improvement. - Vital Signs Vital signs: Temp Pulse Resp BP Pulse Ox 98.1 F 52 L 16 143/75 H 96 12/11/19 03:34 12/11/19 03:34 12/11/19 03:34 12/11/19 03:34 12/11/19 03:34 - Laboratory Result Diagrams: 12/10/19 20:03 12/10/19 20:03 Laboratory results interpreted by me: 12/10/19 12/10/19 12/10/19 20:03 20:03 20:03 [place] % (Auto) 14.1 H Sodium 135.4 L Potassium 3.1 L Chloride 97 L TSH 0.38 L - EKG Interpretation by Me Additional EKG results interpreted by me: 12/10/19 22:51 Sinus bradycardia, normal intervals, no significant ST elevation or depression, no significant T wave abnormalities, QTc 461 Discharge - Discharge Clinical Impression: Dysmenorrhea Intractable vomiting Qualifiers: Vomiting type: unspecified Nausea presence: with nausea Qualified Code(s): R11.2 - Nausea with vomiting, unspecified Ovarian cyst Qualifiers: Laterality: bilateral Qualified Code(s): N83.201 - Unspecified ovarian cyst, right side Disposition: ADMITTED OBSERVATION Admitting Provider: Mikel (Hospitalist) Unit Admitted: Medical Floor
[2019-12-10] MEDS: POTASSI CL 20 MEQ/50 ML RIDER 20 MEQ/50 ML RTUPB IV SCH (23:26)
[2019-12-10] MEDS ORDERED: MAGNESIUM HYDROXIDE SUSP 30 ML UDCUP PO PRN (23:34)
[2019-12-10] MEDS ORDERED: MAG HYDROX/AL HYDROX/SIMETH SUSP 30 ML UDCUP PO PRN (23:34)
[2019-12-10] MEDS ORDERED: ACETAMINOPHEN 325 MG TABLET PO PRN (23:37)
[2019-12-10] MEDS ORDERED: LORAZEPAM INJ 2 MG/1 ML VIAL IV PRN (23:37)
[2019-12-10] MEDS ORDERED: ACETAMINOPHEN 650 MG SUPP.RECT PR PRN (23:37)
[2019-12-10] MEDS ORDERED: MORPHINE SULFATE 10 MG/ML INJ IV PRN ×4 (23:38→23:49)
[2019-12-11] MEDS ORDERED: KETOROLAC TROMETHAMINE INJ/PF 30 MG/1 ML SDV IV SCH
[2019-12-11] MEDS ORDERED: CHLORPROMAZINE HCL INJ 25 MG/1 ML AMPULE IV SCH
[2019-12-11] MEDS: KETOROLAC TROMETHAMINE INJ/PF 30 MG/1 ML SDV IV SCH ×3 (02:07→14:23)
[2019-12-11] MEDS: POTASSI CL 20 MEQ/D5-1/2NS 1L 1,000 ML IV PRN ×3 (02:08→12:33)
[2019-12-11] MEDS: POTASSI CL 20 MEQ/50 ML RIDER 20 MEQ/50 ML RTUPB IV SCH (02:08)
--- NOTE | 2019-12-11 02:33 | PDOC H&P ---
History of Present Illness Admission Date/PCP: 12/10/19 23:13 No local PCP Patient complains of: Vomiting History of Present Illness: ZIGGY PICHARDO is a 39 year old female who presented to the emergency room with a 3- day history of nausea and vomiting. She admits having been seen in the [facility] room yesterday and was treated for her nausea and vomiting as well as other menstrual associated symptoms, but her nausea and vomiting have actually worsened despite therapy. She continues to have the accompanying severe bilateral cramping pelvic pain and was noted to have a normal pelvic ultrasound at the time of her recent ER visit. She admits prior similar episodes with menstrual associated pelvic pain and nausea and vomiting. She has not identified any aggravating or ameliorating factors for her nausea and vomiting. In the emergency room she was noted to be mildly hypokalemic and to continue to have nausea and vomiting despite fluid therapy and treatment with Reglan and Zofran. Patient was subsequently admitted to observation status for further evaluation and treatment having failed outpatient therapy. Past Medical History Cardiac Medical History: Denies: Coronary Artery Disease, DVT, Hyperlipidema, Hypertension Pulmonary Medical History: Denies: Asthma, Chronic Obstructive Pulmonary Disease (COPD) EENT Medical History: Denies: Cataracts, Ears - Hearing aids Neurological Medical History: Denies: Multiple Sclerosis, Seizures Endocrine Medical History: Denies: Diabetes Mellitus Type 1, Diabetes Mellitus Type 2, Hyperthyroidism, Hypothyroidism Renal/ Medical History: Denies: Chronic Kidney Disease, Nephrolithiasis Malignancy Medical History: Reports: None GI Medical History: Denies: Cirrhosis, Hepatitis Musculoskeltal Medical History: Denies: Arthritis, Fibromyalgia Skin Medical History: Denies: Eczema, Psoriasis Psychiatric Medical History: Denies: Alcohol Dependency, Substance Abuse, Tobacco Dependency Traumatic Medical History: Reports: None Hematology: Denies: Anemia, Bleeding Tendencies Infectious Medical History: Reports: None Past Surgical History Past Surgical History: Reports: Orthopedic Surgery - knee surgery Social History Information Source: Patient Lives with: Friend Smoking Status: Former Smoker Electronic Cigarette use?: No Frequency of Alcohol Use: None Hx Recreational Drug Use: No Drugs: None Hx Prescription Drug Abuse: No - Advance Directive Resuscitation Status: Full Code Surrogate healthcare decision maker:: Tori Joshua Family History Family History: denies: DM, Malignancy Parental Family History Reviewed: Yes Children Family History Reviewed: No Sibling(s) Family History Reviewed.: No Medication/Allergy Home Medications: Naproxen [Naprosyn 250 Nmg Tablet] 1 tab PO BID #14 tablet 01/08/18 Ondansetron HCl [Zofran 4 mg Tablet] 1 - 2 tab PO Q6 PRN #15 tablet 01/08/18 Ketorolac Tromethamine [Toradol 10 mg Tablet] 10 mg PO Q8HP PRN #15 tablet 02/08/18 Promethazine HCl [Phenergan 25 mg Tablet] 1 tab PO Q6H PRN #15 tablet 02/08/18 Ondansetron HCl [Zofran 4 mg Tablet] 1 - 2 tab PO Q4H PRN #10 tablet 10/14/18 Promethazine HCl [Phenergan] 12.5 mg RC TID #8 supp.rect 10/14/18 Metoclopramide HCl [Reglan] 5 mg PO ASDIR PRN #30 tablet 02/02/19 Ondansetron [Zofran Odt 4 mg Tablet] 1 tab PO Q4H PRN #15 tab.rapdis 07/24/19 Metoclopramide HCl [Reglan 10 mg Tablet] 1 - 2 tab PO ASDIR PRN #25 tablet 12/09/19 Allergies/Adverse Reactions: No Known Allergies Allergy (Verified 12/10/19 19:33) Review of Systems Constitutional: ABSENT: chills, fever(s) Eyes: ABSENT: visual disturbances, other - Eye pain Ears: ABSENT: hearing changes, other - Ear pain Nose, Mouth, and Throat: ABSENT: headache(s), sore throat Cardiovascular: ABSENT: chest pain, palpitations Respiratory: ABSENT: cough, dyspnea Gastrointestinal: PRESENT: as per HPI, abdominal pain, nausea, vomiting. ABSENT: constipation, diarrhea Genitourinary: ABSENT: dysuria, hematuria Musculoskeletal: ABSENT: back pain, joint swelling Integumentary: ABSENT: pruritus, rash Neurological: ABSENT: confusion, convulsions, focal weakness, memory loss, syncope Psychiatric: ABSENT: anxiety, depression Endocrine: ABSENT: cold intolerance, heat intolerance Hematologic/Lymphatic: ABSENT: easy bleeding, easy bruising Allergic/Immunologic: ABSENT: seasonal rhinorrhea Physical Exam Vital Signs: Temp Pulse Resp BP Pulse Ox 98.6 F 56 L 17 147/87 H 99 12/10/19 21:37 12/10/19 21:37 12/10/19 21:37 12/10/19 21:37 12/10/19 21:37 Intake & Output 12/09/19 12/09/19 12/10/19 00:59 23:59 23:59 Intake Total 1000 Balance 1000 Weight 84.822 kg General appearance: PRESENT: cooperative, mild distress - Secondary to pelvic pain and nausea Head exam: PRESENT: atraumatic, normocephalic Eye exam: PRESENT: conjunctiva pink, other - Mild exophthalmos noted bilaterally. ABSENT: conjunctival injection, scleral icterus Ear exam: PRESENT: normal external ear exam. ABSENT: bleeding, drainage Mouth exam: PRESENT: dry mucosa, neck supple Neck exam: ABSENT: thyromegaly, tracheal deviation Respiratory exam: PRESENT: clear to auscultation conchita, symmetrical, unlabored Cardiovascular exam: PRESENT: RRR. ABSENT: clicks, gallop, rubs Pulses: PRESENT: normal radial pulses, normal dorsalis pedis pul Vascular exam: PRESENT: normal capillary refill. ABSENT: pallor GI/Abdominal exam: PRESENT: normal bowel sounds, soft Rectal exam: PRESENT: deferred Extremities exam: ABSENT: joint swelling, pedal edema Musculoskeletal exam: ABSENT: deformity, dislocation Neurological exam: PRESENT: alert, oriented to person, oriented to place, oriented to time, oriented to situation, CN II-XII grossly intact. ABSENT: ricky r sensory deficit Psychiatric exam: PRESENT: appropriate affect, normal mood Skin exam: PRESENT: dry, intact, warm. ABSENT: jaundice, rash, urticaria Results Laboratory Results: 12/10/19 20:03 12/10/19 20:03 12/10/19 12/10/19 12/10/19 20:03 20:03 20:03 WBC 5.3 RBC 4.08 Hgb 13.0 Hct 38.0 MCV 93 MCH 31.9 MCHC 34.3 RDW 13.8 Plt Count 209 Seg Neutrophils % 47.8 Sodium 135.4 L Potassium 3.1 L Chloride 97 L Carbon Dioxide 29 Anion Gap 9 BUN 17 Creatinine 0.82 Est GFR ( Amer) > 60 Glucose 92 Calcium 8.9 Phosphorus Magnesium Total Bilirubin 1.0 AST 30 Alkaline Phosphatase 40 Total Protein 6.6 Albumin 4.0 TSH Serum HCG, Qual NEGATIVE 12/10/19 12/10/19 20:03 20:03 WBC RBC Hgb Hct MCV MCH MCHC RDW Plt Count Seg Neutrophils % Sodium Potassium Chloride Carbon Dioxide Anion Gap BUN Creatinine Est GFR ( Amer) Glucose Calcium Phosphorus 3.7 Magnesium 2.0 Total Bilirubin AST Alkaline Phosphatase Total Protein Albumin TSH 0.38 L Serum HCG, Qual Assessment and Plan - Diagnosis (1) Hypokalemia Is this a current diagnosis for this admission?: Yes (2) Intractable vomiting Qualifiers: Vomiting type: unspecified Nausea presence: with nausea Qualified Code(s): R11.2 - Nausea with vomiting, unspecified Is this a current diagnosis for this admission?: Yes (3) Dysmenorrhea Is this a current diagnosis for this admission?: Yes (4) Hyperthyroidism Is this a current diagnosis for this admission?: Yes - Plan Summary Summary: Patient will be admitted status on the medical floor where she received routine supportive and symptomatic cares. She will be treated with IV fluids utilizing D5 half-normal saline with 20 mEq of KCl per liter at 250 mL/h. She will receive Thorazine 25 mg IV every 8 hours as needed for intractable nausea or vomiting. She will receive Ativan 1 mg IV every 4 hours as needed for anxiety or restlessness. She will receive morphine sulfate 2 to 4 mg IV every 2 hours as needed for pain. She will be on a regular diet. Additional laboratory and radiographic evaluations will be obtained as needed. - Time Time Spent with patient: 15-24 minutes Medications reviewed and adjusted accordingly: Yes Anticipated Discharge Disposition: Home, Self Care Anticipated Discharge Timeframe: within 24 hours - Inpatient Certification Based on my medical assessment, after consideration of the patient's comorbidities, presenting symptoms, or acuity I expect that the services needed warrant INPATIENT care.: No I certify that my determination is in accordance with my understanding of Medicare's requirements for reasonable and necessary INPATIENT services [42 CFR 412.3e].: No
[2019-12-11] MEDS ORDERED: METOPROLOL TARTRATE PF/INJ 5 MG/5 ML SDV IV PRN (02:34)
[2019-12-11] MEDS ORDERED: CHLORPROMAZINE HCL INJ 25 MG/1 ML AMPULE IV PRN (02:34)
[2019-12-11] MEDS ORDERED: PANTOPRAZOLE SODIUM 40 MG TABLET.DR PO SCH (06:00)
[2019-12-11 06:39] LABS: APPEARANCE,URINE SLIGHTLY-CLOUDY; BILIRUBIN,URINE NEGATIVE (NEGATIVE); COLOR,URINE YELLOW; GLUCOSE, URINE NEGATIVE (NEGATIVE); KETONES,URINE 20 mg/dL (NEGATIVE); LEUKOCYTE ESTERASE,URINE TRACE (NEGATIVE); NITRITE,URINE NEGATIVE (NEGATIVE); PROTEIN,URINE 30 mg/dL (NEGATIVE); URINE SPECIFIC GRAVITY 1.011
[2019-12-11] MEDS: METHIMAZOLE 5 MG TABLET PO SCH ×2 (06:53→14:24)
[2019-12-11] MEDS: HEPARIN SOD (PORCINE) 5,000 UNIT/ML 1 ML VIAL SUBCUT SCH ×2 (06:53→14:24)
[2019-12-11 07:39] LABS: HEMATOCRIT 37.1 % (36.0-47.0); HEMOGLOBIN 12.6 g/dL (12.0-15.5); MEAN CORPUSCULAR HEMOGLOBIN 31.9 pg (27.0-33.4); MEAN CORPUSCULAR VOLUME 94 fl (80-97); PLATELET COUNT 198 10^3/uL (150-450); RED BLOOD COUNT 3.96 10^6/uL (3.72-5.28); RED CELL DISTRIBUTION WIDTH 13.9 % (11.5-14.0); WHITE BLOOD COUNT 5.1 10^3/uL (4.0-10.5)
[2019-12-11 07:55] LABS: ANION GAP 10 (5-19); BLOOD UREA NITROGEN 13 mg/dL (7-20); CALCIUM 8.4 mg/dL (8.4-10.2); CARBON DIOXIDE 25 mmol/L (22-30); CHLORIDE 101 mmol/L (98-107); GLUCOSE 129 mg/dL (75-110)
[2019-12-11 07:56] LABS: POTASSIUM 3.6 mmol/L (3.6-5.0)
[2019-12-11 08:13] LABS: FREE T3 2.74 pg/mL (2.77-5.27); FREE T4 (FREE THYROXINE) 1.23 ng/dL (0.78-2.19)
[2019-12-11 08:26] LABS: THYROID STIMULATING HORMONE 0.77 uIU/mL (0.47-4.68)
[2019-12-11 15:04] VITALS: BP 124/82
--- NOTE | 2019-12-11 15:59 | PDOC DISCHARGE SUMMARY ---
Impression - Admit/DC Date/PCP Admission Date/Primary Care Provider: 12/10/19 23:13 Discharge Date: 12/11/19 - Discharge Diagnosis (1) Cyclical vomiting, intractable Is this a current diagnosis for this admission?: Yes (2) Dysmenorrhea Is this a current diagnosis for this admission?: Yes (3) Hypokalemia Is this a current diagnosis for this admission?: Yes (4) Intractable vomiting Is this a current diagnosis for this admission?: Yes (5) Ovarian cyst Is this a current diagnosis for this admission?: Yes (6) Abdominal pain Is this a current diagnosis for this admission?: Yes (7) Dehydration Is this a current diagnosis for this admission?: Yes (8) Nausea and vomiting Is this a current diagnosis for this admission?: Yes - Additional Information Resuscitation Status: Full Code Discharge Diet: As Tolerated, Regular Discharge Activity: Activity As Tolerated, Balance Activity w/Rest Prescriptions: Ondansetron [Zofran Odt 4 mg Tablet] 4 mg PO Q6HP PRN #12 tab.rapdis PRN Reason: Home Medications: Ondansetron [Zofran Odt 4 mg Tablet] 4 mg PO Q6HP PRN #12 tab.rapdis 12/11/19 History of Present Illiness History of Present Illness: Per Previous Physician: "ZIGGY PICHARDO is a 39 year old female who presented to the emergency room with a 3- day history of nausea and vomiting. She admits having been seen in the emergency room yesterday and was treated for her nausea and vomiting as well as other menstrual associated symptoms, but her nausea and vomiting have actually worsened despite therapy. She continues to have the accompanying severe bilateral cramping pelvic pain and was noted to have a normal pelvic ultrasound at the time of her recent ER visit. She admits prior similar episodes with menstrual associated pelvic pain and nausea and vomiting. She has not identified any aggravating or ameliorating factors for her nausea and vomiting. In the emergency room she was noted to be mildly hypokalemic and to continue to have nausea and vomiting despite fluid therapy and treatment with Reglan and Zofran. 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 She stated she would at least consider it and discuss it with [facility] outpatient Patient does not have hyperthyroidism. TSH is low but it was checked during an episode of acute illness which makes it essentially useless. T3 and T4 were essentially normal. Physical Exam Vital Signs: Temp Pulse Resp BP Pulse Ox 98.1 F 62 16 124/82 99 12/11/19 15:03 12/11/19 15:03 12/11/19 15:03 12/11/19 15:03 12/11/19 15:03 Intake & Output 12/10/19 12/11/19 12/12/19 06:59 06:59 06:59 Intake Total 2050 1400 Output Total 750 Balance 1300 1400 Weight 82.5 kg 82.5 kg Exam: General appearance: PRESENT: no acute distress, well-developed, well-nourished Head exam: PRESENT: atraumatic, normocephalic Eye exam: PRESENT: conjunctiva pink. ABSENT: scleral icterus Mouth exam: PRESENT: moist Respiratory exam: PRESENT: clear to auscultation conchita. ABSENT: rales, rhonchi, wheezes Cardiovascular exam: PRESENT: RRR. ABSENT: diastolic murmur, rubs, systolic murmur GI/Abdominal exam: PRESENT: normal bowel sounds, soft. ABSENT: distended, guarding, mass, organolmegaly, rebound, tenderness Neurological exam: PRESENT: alert, awake, oriented to person, oriented to place, oriented to time, oriented to situation Psychiatric exam: PRESENT: appropriate affect, normal mood Skin exam: PRESENT: dry, intact, warm Results Laboratory Results: WBC 5.1 10^3/uL (4.0-10.5) 12/11/19 06:42 RBC 3.96 10^6/uL (3.72-5.28) 12/11/19 06:42 Hgb 12.6 g/dL (12.0-15.5) 12/11/19 06:42 Hct 37.1 % (36.0-47.0) 12/11/19 06:42 MCV 94 fl (80-97) 12/11/19 06:42 MCH 31.9 pg (27.0-33.4) 12/11/19 06:42 MCHC 34.0 g/dL (32.0-36.0) 12/11/19 06:42 RDW 13.9 % (11.5-14.0) 12/11/19 06:42 Plt Count 198 10^3/uL (150-450) 12/11/19 06:42 Lymph % (Auto) 37.1 % (13-45) 12/10/19 20:03 [place] % (Auto) 14.1 % (3-13) H 12/10/19 20:03 Eos % (Auto) 0.5 % (0-6) 12/10/19 20:03 Baso % (Auto) 0.5 % (0-2) 12/10/19 20:03 Absolute Neuts (auto) 2.5 10^3/uL (1.7-8.2) 12/10/19 20:03 Absolute Lymphs (auto) 2.0 10^3/uL (0.5-4.7) 12/10/19 20:03 Absolute Monos (auto) 0.7 10^3/uL (0.1-1.4) 12/10/19 20:03 Absolute Eos (auto) 0.0 10^3/uL (0.0-0.6) 12/10/19 20:03 Absolute Basos (auto) 0.0 10^3/uL (0.0-0.2) 12/10/19 20:03 Seg Neutrophils % 47.8 % (42-78) 12/10/19 20:03 Sodium 135.7 mmol/L (137-145) L 12/11/19 06:42 Potassium 3.6 mmol/L (3.6-5.0) 12/11/19 06:42 Chloride 101 mmol/L (98-107) 12/11/19 06:42 Carbon Dioxide 25 mmol/L (22-30) 12/11/19 06:42 Anion Gap 10 (5-19) 12/11/19 06:42 BUN 13 mg/dL (7-20) 12/11/19 06:42 Creatinine 0.76 mg/dL (0.52-1.25) 12/11/19 06:42 Est GFR ( Amer) > 60 (>60) 12/11/19 06:42 Est GFR (MDRD) Non-Af > 60 (>60) 12/11/19 06:42 Glucose 129 mg/dL (75-110) H 12/11/19 06:42 Calcium 8.4 mg/dL (8.4-10.2) 12/11/19 06:42 Phosphorus 3.7 mg/dL (2.5-4.5) 12/10/19 20:03 Magnesium 2.0 mg/dL (1.6-2.3) 12/11/19 06:42 Total Bilirubin 1.0 mg/dL (0.2-1.3) 12/10/19 20:03 Direct Bilirubin 0.0 mg/dL (0.0-0.4) 12/10/19 20:03 Neonat Total Bilirubin Not Reportable 12/10/19 20:03 Neonat Direct Bilirubin Not Reportable 12/10/19 20:03 Neonat Indirect Bili Not Reportable 12/10/19 20:03 AST 30 U/L (14-36) 12/10/19 20:03 ALT 24 U/L (<35) 12/10/19 20:03 Alkaline Phosphatase 40 U/L (38-126) 12/10/19 20:03 Total Protein 6.6 g/dL (6.3-8.2) 12/10/19 20:03 Albumin 4.0 g/dL (3.5-5.0) 12/10/19 20:03 TSH 0.77 uIU/mL (0.47-4.68) 12/11/19 06:42 Free T4 1.23 ng/dL (0.78-2.19) 12/11/19 06:42 Free T3 pg/mL 2.74 pg/mL (2.77-5.27) L 12/11/19 06:42 Serum HCG, Qual NEGATIVE (NEGATIVE) 12/10/19 20:03 Urine Color YELLOW 12/11/19 06:06 Urine Appearance SLIGHTLY-CLOUDY 12/11/19 06:06 Urine pH 7.0 (5.0-9.0) 12/11/19 06:[address] 1.011 12/11/19 06:06 Urine Protein 30 mg/dL (NEGATIVE) H 12/11/19 06:06 Urine Glucose (UA) NEGATIVE mg/dL (NEGATIVE) 12/11/19 06:06 Urine Ketones 20 mg/dL (NEGATIVE) H 12/11/19 06:06 Urine Blood LARGE (NEGATIVE) H 12/11/19 06:06 Urine Nitrite NEGATIVE (NEGATIVE) 12/11/19 06:06 Urine Bilirubin NEGATIVE (NEGATIVE) 12/11/19 06:06 Urine Urobilinogen 4.0 mg/dL (<2.0) H 12/11/19 06:06 Ur Leukocyte Esterase TRACE (NEGATIVE) H 12/11/19 06:06 Urine WBC (Auto) 7 /HPF 12/11/19 06:06 Urine RBC (Auto) 6 /HPF 12/11/19 06:06 U Hyaline Cast (Auto) 1 /LPF 12/11/19 06:06 Squamous Epi Cells Auto 12 /HPF 12/11/19 06:06 Urine Mucus (Auto) RARE /LPF 12/11/19 06:06 Urine Ascorbic Acid NEGATIVE (NEGATIVE) 12/11/19 06:06 Plan Plan of Treatment: Follow-up with PCP Follow-up with [facility] Time Spent: Greater than 30 Minutes Stroke Is this a Stroke Patient?: No Acute Heart Failure Is this a Heart Failure Patient?: No
[2019-12-12] MEDS ORDERED: INFLUENZA QUAD (6MOS+) 2020-21 VAC 0.5 ML SYR IM ONE (08:00)
== END 2019-12-11 17:30 | disposition home or self-care (01) ==
LOC: ER 19:04 → EH 23:13 → 2N 12-11 00:37
PROVIDERS: ADMIT Emergency Medicine; ATTEND Internal Medicine
DX: R11.15 Cyclical vomiting syndrome unrelated to migraine (principal); N94.6 Dysmenorrhea, unspecified; E87.6 Hypokalemia; R10.9 Unspecified abdominal pain; E86.0 Dehydration; N83.202 Unspecified ovarian cyst, left side; H05.20 Unspecified exophthalmos; N83.201 Unspecified ovarian cyst, right side; Z87.891 Personal history of nicotine dependence; Z79.899 Other long term (current) drug therapy
CPT/HCPCS: 93005; 99285; 96361; 96374; 36415 ×2; 84439; 83735 ×2; 84100; 84443 ×2; 84703; 85025; 85027; 80048; 80053; 81001; 84481; 93010; G0378 ×2; J1644; J3230; J1885; J3480 ×3; J2405; J7030; J7120; J3490

== ENCOUNTER 2020-01-29 12:43 | Emergency (ER) | payer SELFPAY ==
[2020-01-29 12:57] VITALS: BP 164/78
[2020-01-29] MEDS ORDERED: NORMAL SALINE 1000 ML 1,000 ML IV ONE (13:04)
[2020-01-29] MEDS ORDERED: ONDANSETRON HCL INJ/PF 4 MG/2 ML SDV IV ONE ×2 (13:04→15:33)
--- NOTE | 2020-01-29 13:06 | ER Document Report ---
ED Medical Screen (RME) - General Chief Complaint: Vomiting Stated Complaint: VOMITING,WEAKNESS Time Seen by Provider: 01/29/20 13:02 Mode of Arrival: Wheelchair Information source: Patient Notes: 39-year-old female presents to ED for nausea and vomiting since yesterday about 10:30 in the morning. She states this is her second cycle in less than a month. States she does not know why she is getting so many menstrual cycles. She states she also has ovarian cyst that are painful. We will get blood urine ultrasound give her some Zofran IV fluids and Toradol for her discomfort. I have greeted and performed a rapid initial assessment of this patient. A comprehensive ED assessment and evaluation of the patient, analysis of test results and completion of medical decision making process will be conducted by an additional ED providers. TRAVEL OUTSIDE OF THE [place] IN LAST 30 DAYS: No - Related Data Allergies/Adverse Reactions: No Known Allergies Allergy (Verified 12/10/19 19:33) Past Medical History - Past Medical History Cardiac Medical History: Denies: Hx Coronary Artery Disease, Hx DVT, Hx Hypercholesterolemia, Hx Hypertension Pulmonary Medical History: Denies: Hx Asthma, Hx COPD Neurological Medical History: Denies: Hx Seizures Endocrine Medical History: Denies: Hx Diabetes Mellitus Type 1, Hx Diabetes Mellitus Type 2, Hx Hyperthyroidism, Hx Hypothyroidism Renal/ Medical History: Reports: Hx Ovarian Cysts. Denies: Hx Peritoneal Dialysis GI Medical History: Denies: Hx Cirrhosis, Hx Hepatitis Musculoskeltal Medical History: Denies Hx Arthritis, Denies Hx Fibromyalgia Skin Medical History: Denies Hx Eczema, Denies Hx Psoriasis Psychiatric Medical History: Denies: Hx Depression Infectious Medical History: Denies: Hx Hepatitis Past Surgical History: Reports: Hx Oral Surgery - wisodm teeth, Hx Orthopedic Surgery - knee surgery - Immunizations Immunizations up to date: Yes Hx Diphtheria, Pertussis, Tetanus Vaccination: Yes Physical Exam - Vital signs Vitals: Temp Pulse Resp BP Pulse Ox 98.2 F 56 L 14 164/78 H 98 01/28/20 12:54 01/28/20 12:54 01/28/20 12:54 01/28/20 12:54 01/28/20 12:54 Course - Vital Signs Vital signs: Temp Pulse Resp BP Pulse Ox 98.2 F 56 L 14 164/78 H 98 01/28/20 12:54 01/28/20 12:54 01/28/20 12:54 01/28/20 12:54 01/28/20 12:54
[2020-01-29] MEDS ORDERED: KETOROLAC TROMETHAMINE INJ/PF 30 MG/1 ML SDV IV ONE (13:09)
[2020-01-29 13:56] LABS: ABSOLUTE LYMPHOCYTES (AUTO) 0.4 10^3/uL (0.5-4.7); ABSOLUTE MONOCYTES (AUTO) 0.2 10^3/uL (0.1-1.4); ABSOLUTE NEUT (AUTO) 6.1 10^3/uL (1.7-8.2); BASOPHILS % (AUTO) 0.3 % (0-2); HEMATOCRIT 38.9 % (36.0-47.0); HEMOGLOBIN 12.9 g/dL (12.0-15.5); LYMPHOCYTES % (AUTO) 6.4 % (13-45); MEAN CORPUSCULAR HEMOGLOBIN 30.9 pg (27.0-33.4); MEAN CORPUSCULAR HGB CONC 33.1 g/dL (32.0-36.0); MEAN CORPUSCULAR VOLUME 94 fl (80-97); PLATELET COUNT 232 10^3/uL (150-450); RED BLOOD COUNT 4.16 10^6/uL (3.72-5.28); RED CELL DISTRIBUTION WIDTH 14.7 % (11.5-14.0); SEGMENTED NEUTROPHILS % (AUTO) 90.3 % (42-78); TOTAL CELLS COUNTED % (AUTO) 100 %; WHITE BLOOD COUNT 6.7 10^3/uL (4.0-10.5)
[2020-01-29 14:21] LABS: ALBUMIN 4.8 g/dL (3.5-5.0); ALKALINE PHOSPHATASE 53 U/L (38-126); ANION GAP 11 (5-19); ASPARTATE AMINO TRANSFERASE 42 U/L (14-36); BILIRUBIN,DIRECT 0.1 mg/dL (0.0-0.4); BILIRUBIN,TOTAL 0.9 mg/dL (0.2-1.3); BLOOD UREA NITROGEN 19 mg/dL (7-20); CALCIUM 10.2 mg/dL (8.4-10.2); CARBON DIOXIDE 27 mmol/L (22-30); CHLORIDE 103 mmol/L (98-107); GLUCOSE 141 mg/dL (75-110); POTASSIUM 3.5 mmol/L (3.6-5.0); TOTAL PROTEIN 8.3 g/dL (6.3-8.2)
--- NOTE | 2020-01-29 15:09 | RADIOLOGY REPORT (SQ) ---
EXAM DESCRIPTION: U/S NON OB PEL TV W/DOPPLER IMAGES COMPLETED DATE/TIME: 01/29/2020 2:58 pm REASON FOR STUDY: Pain bleeding multiple periods per month COMPARISON: 12/09/2019 TECHNIQUE: Dynamic and static grayscale images acquired of the pelvis via transvaginal approach and recorded on PACS. Additional selected color Doppler and spectral images recorded. LIMITATIONS: None. FINDINGS: UTERUS: Heterogeneous appearance. Possible adenomyosis. ENDOMETRIAL STRIPE: No focal or generalized thickening. No masses. CERVIX: No nabothian cysts. RIGHT OVARY AND DOPPLER: Normal size. No worrisome masses. Normal arterial vascular flow without evid ence for torsion. LEFT OVARY AND DOPPLER: Normal size. Parovarian cyst measuring 16 mm. No worrisome masses. Normal a rterial vascular flow without evidence for torsion. FREE FLUID: None noted. OTHER: No other significant finding. MEASUREMENTS: UTERUS: 9.3 x 5 x 4.6 cm. ENDOMETRIAL STRIPE: 5 mm. RIGHT OVARY: 3 x 2.6 x 1.5 cm. LEFT OVARY: 3.6 x 2 x 2.3 cm. IMPRESSION: Possible adenomyosis of the uterus. No other significant finding. TECHNICAL DOCUMENTATION: JOB ID: [id number] 2010 [employer]- All Rights Reserved Rev Reading location - IP/workstation name: [email or web address]
--- NOTE | 2020-01-29 15:29 | ER Document Report ---
ED General - General Chief Complaint: Nausea/Vomiting Stated Complaint: VOMITING,WEAKNESS Time Seen by Provider: 01/29/20 13:02 Primary Care Provider: OUMOU SANCHEZ MD [Primary Care Provider] - Follow up in 1 week Mode of Arrival: Wheelchair TRAVEL OUTSIDE OF THE [place] IN LAST 30 DAYS: No - HPI Notes: 39-year-old female to the emergency department with complaints of nausea vomiting and pelvic cramping for the past 2 days. She states she started her period and then she began to have these symptoms. She states for the past year she has been having these symptoms where every time she has a menstrual cycle she has severe abdominal cramping vomiting. She was actually admitted in December for intractable vomiting for this. She states that she is not taking anything for her pain. She states that she is not had anything for nausea. She does admit that she has an UTILIZATION SPECIALIST appointment tomorrow. Denies fevers or chills - Related Data Allergies/Adverse Reactions: No Known Allergies Allergy (Verified 12/10/19 19:33) Past Medical History - General Information source: Patient - Social History Smoking Status: Never Smoker Family History: Reviewed & Not Pertinent - Past Medical History Cardiac Medical History: Denies: Hx Coronary Artery Disease, Hx DVT, Hx Hypercholesterolemia, Hx Hypertension Pulmonary Medical History: Denies: Hx Asthma, Hx COPD Neurological Medical History: Denies: Hx Seizures Endocrine Medical History: Denies: Hx Diabetes Mellitus Type 1, Hx Diabetes Mellitus Type 2, Hx Hyperthyroidism, Hx Hypothyroidism Renal/ Medical History: Reports: Hx Ovarian Cysts. Denies: Hx Peritoneal Dialysis GI Medical History: Denies: Hx Cirrhosis, Hx Hepatitis Musculoskeletal Medical History: Denies Hx Arthritis, Denies Hx Fibromyalgia Skin Medical History: Denies Hx Eczema, Denies Hx Psoriasis Psychiatric Medical History: Denies: Hx Depression Infectious Medical History: Denies: Hx Hepatitis Past Surgical History: Reports: Hx Oral Surgery - wisodm teeth, Hx Orthopedic Surgery - knee surgery - Immunizations Immunizations up to date: Yes Hx Diphtheria, Pertussis, Tetanus Vaccination: Yes Review of Systems - Review of Systems Constitutional: denies: Chills, Fever EENT: No symptoms reported Cardiovascular: denies: Chest pain, Palpitations, Syncope, Dizziness, Lightheaded Respiratory: denies: Cough, Short of breath Gastrointestinal: Abdominal pain, Nausea, Vomiting. denies: Diarrhea Genitourinary: No symptoms reported Female Genitourinary: See HPI, Vaginal bleeding Musculoskeletal: No symptoms reported Skin: No symptoms reported Hematologic/Lymphatic: No symptoms reported Neurological/Psychological: No symptoms reported -: Yes All other systems reviewed and negative Physical Exam - Vital signs Vitals: Temp Pulse Resp BP Pulse Ox 98.2 F 56 L 14 164/78 H 98 01/28/20 12:54 01/28/20 12:54 01/28/20 12:54 01/28/20 12:54 01/28/20 12:54 Interpretation: Hypertensive - Notes Notes: PHYSICAL EXAMINATION: GENERAL: Well-appearing, well-nourished and in no acute distress. HEAD: Atraumatic, normocephalic. EYES: Pupils equal round and reactive to light, extraocular movements intact, sclera anicteric, conjunctiva are normal. ENT: nares patent, oropharynx clear without exudates. Moist mucous membranes. NECK: Normal range of motion, supple without lymphadenopathy LUNGS: Breath sounds clear to auscultation bilaterally and equal. No wheezes rales or rhonchi. HEART: Regular rate and rhythm without murmurs ABDOMEN: Soft, mild tenderness to palpation to the suprapubic abdomen, no rmoactive bowel sounds. No guarding, no rebound. No masses appreciated. No CVA tenderness EXTREMITIES: Normal range of motion, no pitting or edema. No cyanosis. NEUROLOGICAL: No focal neurological deficits. Moves all extremities spontaneously and on command. PSYCH: Normal mood, normal affect. SKIN: Warm, Dry, normal turgor, no rashes or lesions noted. Course - Re-evaluation Re-evalutation: 01/29/20 Impression: Nausea, vomiting, abdominal/pelvic pain associated with dysfunctional uterine bleeding. Labs are reassuring. Patient is feeling better after pain medicines, antiemetics, fluids. Given her second round of Zofran and she has been able to hold down paty krish. She supposed to see UTILIZATION SPECIALIST tomorrow and I have encouraged her to follow-up with them. Noted ultrasound reading today. I have explained the patient when adenomyosis is. This certainly could explain some of her symptoms since they are new to her this year with her menstrual cycles. Encouraged her to return if she has worsening symptoms. Will send home with Zofran, Phenergan, and NSAIDs for her pain. - Vital Signs Vital signs: Temp Pulse Resp BP Pulse Ox 98.2 F 56 L 14 164/78 H 98 01/28/20 12:54 01/28/20 12:54 01/28/20 12:54 01/28/20 12:54 01/28/20 12:54 - Laboratory Results Result Diagrams: 01/29/20 13:35 01/29/20 13:35 Laboratory Results Interpreted: 01/29/20 01/29/20 13:35 13:35 RDW 14.7 H Lymph % (Auto) 6.4 L Absolute Lymphs (auto) 0.4 L Seg Neutrophils % 90.3 H Potassium 3.5 L Glucose 141 H AST 42 H ALT 37 H Total Protein 8.3 H Critical Laboratory Results Reviewed: No Critical Results - Radiology Results Critical Radiology Results Reviewed: No Critical Results Discharge - Discharge Clinical Impression: Dysfunctional uterine bleeding, Pelvic pain, Elevated blood pressure reading Nausea & vomiting Qualifiers: Vomiting type: unspecified Vomiting Intractability: non-intractable Qualified Code(s): R11.2 - Nausea with vomiting, unspecified Condition: Stable Disposition: HOME, SELF-CARE Instructions: Pelvic Pain ([facility]), Vomiting ([facility]) Additional Instructions: Follow-up tomorrow for your [employer] appointment as scheduled. Please return if your symptoms worsen. You have been sent home with the results of your ultrasound as well. Prescriptions: Etodolac 200 mg PO BID #20 capsule Promethazine HCl [Phenergan 25 mg Supp.rect] 1 supp DE Q6H #12 supp.rect Ondansetron [Zofran Odt 4 mg Tablet] 1 - 2 tab PO Q4H PRN #15 tab.rapdis PRN Reason: For Nausea/Vomiting Referrals: OUMOU SANCHEZ MD [Primary Care Provider] - Follow up in 1 week
[2020-01-29] MEDS ORDERED: FAMOTIDINE INJ/PF 20 MG/2 ML SDV IV ONE (15:35)
== END 2020-01-29 16:10 | disposition home or self-care (01) ==
LOC: ER 12:43
DX: N93.8 Other specified abnormal uterine and vaginal bleeding (principal); R11.2 Nausea with vomiting, unspecified; R10.2 Pelvic and perineal pain; R53.1 Weakness; R10.9 Unspecified abdominal pain
CPT/HCPCS: 96376; 99285; 96361; 96374; 96375; 36415; 84702; 84703; 85025; 80053; 76830; 93976; J1885; J2405; J7030; S0028